=== PATIENT | female | born 1990 ===

== ENCOUNTER → 2021-12-09 16:19 | Outpatient (CLI) | payer OTHER, SELFPAY ==
--- NOTE | 2021-12-09 16:23 | DI.MRI.S_ITS ---
PROCEDURE: MR FOOT RT WO CON INDICATIONS: Pain in right foot TECHNIQUE: Noncontrast sagittal T1 spin echo and T2 fast spin echo with fat saturation, long-axis T1 spin echo and T2 fast spin echo with fat saturation, short-axis T1 spin echo and T2 fast spin echo with fat saturation through the forefoot. COMPARISON: None. FINDINGS: Image quality: Excellent. Bones and joints: No bone marrow contusions or metatarsal stress fractures. The sesamoid bones appear in expected positions, without internal edema. Moderate degenerative changes are seen at the 1st metatarsophalangeal joint with subchondral cystic changes and marginal osteophytes. There is mild hallux valgus.. No intraosseous lesions. Soft tissues: The visualized plantar foot muscles demonstrate normal signal and bulk. Visualized flexor and extensor tendons appear intact, without tenosynovitis. The distal insertions of the peroneus brevis and longus tendons appear intact. The principal Lisfranc ligament appears intact. No soft tissue ganglion cysts or bursal fluid collections. Sagittal images demonstrate no evidence for plantar plate tears. Chronic pressure related changes are seen in the subcutaneous tissues plantar to the 5th metatarsal head. IMPRESSION: Mild hallux valgus and moderate degenerative changes at the 1st metatarsophalangeal joint. Dictated by: Estrada Castaneda M.D. on 12/10/2021 at 8:42 Approved by: Estrada Castaneda M.D. on 12/10/2021 at 8:52
== END ==
PROVIDERS: PCP Podiatrist; Referring Provider Podiatrist; Visit Provider Podiatrist
DX: M20.11 Hallux valgus (acquired), right foot (principal); S93.511A Sprain of interphalangeal joint of right great toe, initial encounter; R26.2 Difficulty in walking, not elsewhere classified; M79.671 Pain in right foot
CPT/HCPCS: 73718

== ENCOUNTER 2024-02-23 13:00 | Outpatient (RCR) | payer OTHER, SELFPAY ==
--- NOTE | 2023-12-17 15:51 | PT.OIE ---
Current Diagnoses Pain in left knee (12/17/23) Low back pain, unspecified (12/17/23) Weakness (12/17/23) Visit Care Team Role Provider Type James Blandon DPM Family Provider Physician Primary Care Provider Specialty: Podiatry Address: [address], [place], [address] Email: Jody Spear MD Attending Provider Non-Staff Referring Provider Specialty: Family Practice Address: [facility] [facility] [facility], [place], [address] Email: Physical Therapy Initial Evaluation PT-OP-A Visit Information Start: 12/17/23 12:59 Freq: Status: Active Protocol: Document 12/17/23 12:59 NM (Rec: 12/17/23 14:29 NM [id number]) Out-Patient Physical Therapy Visit Information Visit Information Visit Type Initial Evaluation Visit Note 12 visits initially Visit Start Time 13:00 Visit Stop Time 13:45 Visit Number 1 Evaluation Information Evaluation Date 12/17/23 PT-OP-B Current Condition Start: 12/17/23 12:59 Freq: Status: Active Protocol: Document 12/17/23 12:59 NM (Rec: 12/17/23 14:29 NM [id number]) Current Condition History of Current Condition Current Complaints pain, difficulty w/ ADLs/job, strength History of Current Condition Pt presents with knee and back pain. He reports that his L knee aches a lot. It aches when he stands, sit, crosses legs, rest. He thinks he hurt it playing soccer a few years ago (2.5 years ago), but he also [place] the [place]. He planted his knee, it gave out, and he fell backward. He does not recall a pop; was limping but able to weight bear. Lasted several weeks until resolved closer to normal. Reports crepitus and clicking, worse with flexing. He has had previous PT for his knee with the [employer], they think that it's due to rubbing of the cartilage, which was unhelpful . He has had an x-ray, nothing broken. Pt believes it's inside the knee. He is wanting an MRI. Reports knee does not buckle or give out. No other hip or ankle injuries. Pt also has back pain. He reports that he was loading food into storage areas about 1 year ago : bent down and twisted while getting food; his back locked and he couldn't get up or sit. He reports that it has improved but still aches at all times. He reports that it hurts if he wears his tool belt or chain (20# belt, 6x12# )- over the shoulder, crouching, squatting. 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 Injured back last year. He has had no imaging on his back. Pt also reports that he used to lift heavy weights and has been at least 250 pounds for many years, which he believes influences his pain Prior Treatments and Tests previous PT for back pain with [facility]; reports feels better but still not better Treatment Goals Patient/Caregiver Goals more concerned about his knee. 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 Current Functional Impairments (Reported) Functional Limitations- Mobility/Gait 30 minutes of ambulation PT-OP-C Subjective Start: 12/17/23 12:59 Freq: Status: Active Protocol: Document 12/17/23 12:59 NM (Rec: 12/17/23 14:29 NM [id number]) OP-PT Subjective Patient Comments Patient Comments see hx above for pt report Patient Questionnaires Lower Extremity Functional Scale LEFS Score 30/80 Oswestry Low Back Index Oswestry Score 10/50 OP-PT Pain Assessment Location back Pain Location Details R side along spine Intensity 4 Scale Used Numeric (0 - 10) Description Aching,Throbbing Description- Other worse Pain Duration 1 hour Variations/Patterns none Pain Aggravating Factors Standing,Sitting,Walking, Bending,Lifting Other Pain Aggravating Factors getting out of bed, 15-10 min w/ pouch, 30 min w/o, lifting kid, ext Pain Alleviating Factors Heat,Massage Other Pain Alleviating Factors stretching, sidelying L L knee Pain Location Details inside knee on either side of patella Intensity 6 Scale Used Numeric (0 - 10) Description Aching Frequency Constant Pain Aggravating Factors ADL's,Activity,Exercise, Standing,Sitting,Walking Other Pain Aggravating Factors crawling, moving, running, stairs (down palak) Pain Alleviating Factors None PT-OP-E Functional Tests Start: 12/17/23 12:59 Freq: Status: Active Protocol: Document 12/17/23 12:59 NM (Rec: 12/17/23 14:29 NM [id number]) Functional Tests Squat Test Score 10 Comments inc trunk flex and R rot, knee pain w/ depth, inc tibial fwd PT-OP-F Manual Assessment Start: 12/17/23 12:59 Freq: Status: Active Protocol: Document 12/17/23 12:59 NM (Rec: 12/17/23 14:29 NM [id number]) Manual Assessments Soft Tissue Assessment Soft Tissue Mobility Assessment Increased tone along lumbar paraspinals, R>L. Increased hamstring length L>R Joint Mobility Assessment Joint Mobility Assessment Hypomobility with P-A springing of lumbar spine, tenderness along L1-L3. Limited B hip ROM. No L knee pain with overpressure into flex or ext, but increased L knee hyperextension compared to R knee. L patella tracks laterally. Limited L patellar mobility medially and superiorly, which also reproduces pain. PT-OP-G Mobility & Gait Start: 12/17/23 12:59 Freq: Status: Active Protocol: Document 12/17/23 12:59 NM (Rec: 12/17/23 14:29 NM [id number]) OP Gait Assessment Gait Deviations General Gait Pattern Antalgic Comments Gait Comments Pt demonstrates antalgic gait with L stance and slightly forward flexed trunk. Does not move into truncal extension and with minimal trunk rotation. L knee hyperextends with stance as well, and he has B foot ER PT-OP-J Posture/Palpation/Skin Start: 12/17/23 12:59 Freq: Status: Active Protocol: Document 12/17/23 12:59 NM (Rec: 12/17/23 14:29 NM [id number]) Posture Evaluation Position Standing Head/C-Spine Posture Forward Head L-Spine Posture Decreased Lordosis Shoulder Posture (L) Rounded,(R) Rounded Arm Posture (L) Internally Rotated,(R) Internally Rotated Weight Distribution Weight Shifted Right Hip Posture (L) Externally Rotated,(R) Externally Rotated Knee Posture (L) Genu Valgus,(R) Genu Valgus Patellar Posture (L) Superior,(R) Superior Palpation Assessment Location lumbar spine Palpation Details Tenderness just lateral to midline spinous processes along R side near L1-L3 No tenderness along B PSIS or SIJ Increased tightness of B glutes/piriformis, paraspinals bilaterally with L hypertrophy L knee Palpation Details No tenderness along joint line , patella, quad/hamstring Mild tenderness with patellar mobilization only, ligament testing PT-OP-K Range of Motion Start: 12/17/23 12:59 Freq: Status: Active Protocol: Document 12/17/23 12:59 NM (Rec: 12/17/23 14:29 NM [id number]) Lumbar Spine Range of Motion Lumbar Spine Active Percentage Flexion 100 Extension 25 Rotation Left 10 Rotation Right 5 Lateral Flexion Left 100 Lateral Flexion Right 100 Comments Pain reproduced with extension , B lateral flexion (R>L), and B rotation (R>L) Hip Goniometric Range of Motion Hip Right Flexion w/Knee Flexed 100 Internal Rotation 40 External Rotation 40 Comments IR; 130 deg HS Left Flexion w/Knee Flexed 100 Internal Rotation 30 External Rotation 30 Comments pain with IR, 30 abd, 150 HS Knee Goniometric Range of Motion Knee Right Flexion Active (degrees) 125 Extension Active (degrees) 0 Left Flexion Active (degrees) 123 Extension Active (degrees) 0 Hyper-Extension Active 5 Comments no pain with over pressure, only M/sup glide PT-OP-L Special Tests Start: 12/17/23 12:59 Freq: Status: Active Protocol: Document 12/17/23 12:59 NM (Rec: 12/17/23 14:29 NM [id number]) Special Tests Lumbar Spine Special Tests Straight Leg Raise Test Results - Comments worse with head movement Distraction Test Results + Frias/quadrant Test Results + Comments R Knee Special Tests Varus Test Results - Comments 0 and 25 deg Valgus Test Results - Comments 0 and 25 deg Kieth Test Test Results + Comments mild clicking with tibial IR, reproduces reported symptoms Posterior Drawer Test Results - Zelda's Test Results - Anterior Drawer Test Results - Comments no increased translation but reports reproduces feeling in knee PT-OP-M Strength Start: 12/17/23 12:59 Freq: Status: Active Protocol: Document 12/17/23 12:59 NM (Rec: 12/17/23 14:29 NM [id number]) Trunk Strength Trunk Manual Muscle Testing Flexion 4- Good- Extension 4- Good- Rotation Left 4- Good- Rotation Right 4- Good- Lateral Flexion Left 4- Good- Lateral Flexion Right 4- Good- Hip Strength Hip Manual Muscle Testing Right Flexion (L2) 4 Good Extension (S1) 4- Good- Abduction 4- Good- Adduction 4 Good External Rotation 4 Good Internal Rotation 4 Good Left Flexion (L2) 4 Good Extension (S1) 4- Good- Abduction 4- Good- Adduction 4 Good External Rotation 4 Good Internal Rotation 4 Good Knee Strength Knee Manual Muscle Testing Right Flexion (S2) 4+ Good+ Extension (L3) 4+ Good+ Left Flexion (S2) 4+ Good+ Extension (L3) 4- Good- Comments Mild pain reproduced with knee extension PT-OP-T Assessment and Plan Start: 12/17/23 12:59 Freq: Status: Active Protocol: Document 12/17/23 12:59 NM (Rec: 12/17/23 14:29 NM [id number]) Physical Therapy Assessment Rehab Potential Rehabilitation Potential Good Evaluation Complexity Number of Personal Factors/Comorbidities 1-2 Number of Body Systems Impaired 1-2 Clinical Presentation at Evaluation Stable Goals Four Impairment strength Impairment limited B hip and knee strength Short Term Goal (STG) Pt will improve B hip ext/abd strength and L knee ext strength to at least 4/5 without increase in baseline pain in order to demonstrate improved proximal stability for ADLs/activity STG Duration 6 weeks Group Home Goal (LTG) Pt will improve B hip ext/abd strength and L knee ext strength to at least 4+/5 without increase in baseline pain in order to demonstrate improved proximal stability for ADLs/activity LTG Duration 12 weeks Three Impairment squatting Impairment pain with squatting Short Term Goal (STG) Pt will be able to perform at least 10 bilateral squats with pain <6/10 in L knee in order to be able to perform job requirements and demonstrate improved activity tolerance/ QOL STG Duration 6 weeks Housekeeping Manager Goal (LTG) Pt will be able to perform at least 10 bilateral squats while holding weight without increase in baseline pain in L knee in order to be able to perform job requirements and demonstrate improved activity tolerance LTG Duration 12 weeks Two Impairment functional core strength Housekeeping Manager Goal (LTG) Pt will be able to hold modified or standard plank for at least 60 seconds without signs of instability in order to demonstrate improved trunk strength for job fitness requirements LTG Duration 12 weeks One Impairment function, lifting Impairment pain with picking up his child Short Term Goal (STG) Pt will be educated on functional core bracing and demonstrates good abdominal bracing during at least 10 squats in order to bulk picker his child STG Duration 6 weeks Group Home Goal (LTG) Pt will be able to bulk picker his child from the ground without increase in low back pain in order to demonstrate improved QOL, core bracing, and ADL tolerance LTG Duration 12 weeks Assessment Summary Assessment Pt is a 33 y.o. male presenting with low back and L knee pain beginning several years ago. Pt has impairments in both trunk and L knee ROM, strength, mobility, functional activity tolerance, pain management, and ability to perform ADLs/job requirements. Additionally, pt has pain with sitting, standing, ambulating, squatting, lifting , carrying, and picking up objects/people. His trunk ROM is limited into extension, lateral flexion, and rotation. His pain is reproduced with 3D movements, hip mobility, and hamstring length. Pt's back pain is likely due to disc displacement, although he could also have facet involvement. Pt has had previous PT for his pain with minimal success, and he has not had any imaging. Pt's L knee ROM is likely multi- factorial, including a possible meniscus injury. His L knee hyperextends, and he has L joint clicking which is consistent with JAMES and subjective. His symptoms are reproduced with patellar mobility, squatting, tibial translation, and special tests . However, pt does not have joint line tenderness and has not had any imaging. PT educated pt on exam findings and plan of care. At this time , pt is more concerned about his knee. Depending on pt progression with PT, he may benefit from further assessment, including MRI. Pt would benefit from skilled PT for global trunk/hip strengthening, body mechanics training, and flexibility training in order to improve symptom management, in addition to activity tolerance and QOL. Physical Therapy Plan Frequency and Duration Frequency of Treatment 1-2x/wk Duration of treatment (weeks) 12 Plan of Care Start Date 12/17/23 Plan of Care End Date 03/11/24 Therapeutic Interventions Therapeutic Interventions Balance Training,Coordination Training,Gait Training,Home Exercise Program,Joint Mobilizations,Manual Therapy, Neuromuscular Re-education, Orthotic/Prosthetic Management ,Patient/Caregiver Education, Self-Care/Home Management, Sensory Integration,Soft Tissue Mobilization,Taping, Therapeutic Activities, Therapeutic Exercises Modalities Cold Pack/Ice Massage,Electric Stimulation,Hot Packs, Ultrasound Next Visit Focus/Plan Next Note Type Treatment Note Next Visit Plan test plank for time (modified or regular) provide HEP Trial supine HS mobilization, sidelying hip abd and bridging (SL vs DL), initiate flexion biased core bracing and hip hinge, stretching limit squat depth for now
--- NOTE | 2023-12-17 15:51 | PT.OPPOC ---
Physical, Occupational & Speech Therapy At Current Diagnoses Pain in left knee (12/17/23) Low back pain, unspecified (12/17/23) Weakness (12/17/23) Visit Care Team Role Provider Type James Blandon DPM Family Provider Physician Primary Care Provider Specialty: Podiatry Address: [address] [place] [address] [address], [place], [address] Email: Jody Spear MD Attending Provider Non-Staff Referring Provider Specialty: Family Practice Address: [address] [place], [address] Email: Plan Of Care PT-OP-T Assessment and Plan Start: 12/17/23 12:59 Freq: Status: Active Protocol: Document 12/17/23 12:59 NM (Rec: 12/17/23 14:29 NM [id number]) Physical Therapy Assessment Rehab Potential Rehabilitation Potential Good Evaluation Complexity Number of Personal Factors/Comorbidities 1-2 Number of Body Systems Impaired 1-2 Clinical Presentation at Evaluation Stable Goals Four Impairment strength Impairment limited B hip and knee strength Short Term Goal (STG) Pt will improve B hip ext/abd strength and L knee ext strength to at least 4/5 without increase in baseline pain in order to demonstrate improved proximal stability for ADLs/activity STG Duration 6 weeks Automotive Specialty Technician Goal (LTG) Pt will improve B hip ext/abd strength and L knee ext strength to at least 4+/5 without increase in baseline pain in order to demonstrate improved proximal stability for ADLs/activity LTG Duration 12 weeks Three Impairment squatting Impairment pain with squatting Short Term Goal (STG) Pt will be able to perform at least 10 bilateral squats with pain <6/10 in L knee in order to be able to perform job requirements and demonstrate improved activity tolerance/ QOL STG Duration 6 weeks [facility] Goal (LTG) Pt will be able to perform at least 10 bilateral squats while holding weight without increase in baseline pain in L knee in order to be able to perform job requirements and demonstrate improved activity tolerance LTG Duration 12 weeks Two Impairment functional core strength Automotive Specialty Technician Goal (LTG) Pt will be able to hold modified or standard plank for at least 60 seconds without signs of instability in order to demonstrate improved trunk strength for job fitness requirements LTG Duration 12 weeks One Impairment function, lifting Impairment pain with picking up his child Short Term Goal (STG) Pt will be educated on functional core bracing and demonstrates good abdominal bracing during at least 10 squats in order to grape picker his child STG Duration 6 weeks [facility]entiary Goal (LTG) Pt will be able to grape picker his child from the ground without increase in low back pain in order to demonstrate improved QOL, core bracing, and ADL tolerance LTG Duration 12 weeks Assessment Summary Assessment Pt is a 33 y.o. male presenting with low back and L knee pain beginning several years ago. Pt has impairments in both trunk and L knee ROM, strength, mobility, functional activity tolerance, pain management, and ability to perform ADLs/job requirements. Additionally, pt has pain with sitting, standing, ambulating, squatting, lifting , carrying, and picking up objects/people. His trunk ROM is limited into extension, lateral flexion, and rotation. His pain is reproduced with 3D movements, hip mobility, and hamstring length. Pt's back pain is likely due to disc displacement, although he could also have facet involvement. Pt has had previous PT for his pain with minimal success, and he has not had any imaging. Pt's L knee ROM is likely multi- factorial, including a possible meniscus injury. His L knee hyperextends, and he has L joint clicking which is consistent with JAMES and subjective. His symptoms are reproduced with patellar mobility, squatting, tibial translation, and special tests . However, pt does not have joint line tenderness and has not had any imaging. PT educated pt on exam findings and plan of care. At this time , pt is more concerned about his knee. Depending on pt progression with PT, he may benefit from further assessment, including MRI. Pt would benefit from skilled PT for global trunk/hip strengthening, body mechanics training, and flexibility training in order to improve symptom management, in addition to activity tolerance and QOL. Physical Therapy Plan Frequency and Duration Frequency of Treatment 1-2x/wk Duration of treatment (weeks) 12 Plan of Care Start Date 12/17/23 Plan of Care End Date 03/11/24 Therapeutic Interventions Therapeutic Interventions Balance Training,Coordination Training,Gait Training,Home Exercise Program,Joint Mobilizations,Manual Therapy, Neuromuscular Re-education, Orthotic/Prosthetic Management ,Patient/Caregiver Education, Self-Care/Home Management, Sensory Integration,Soft Tissue Mobilization,Taping, Therapeutic Activities, Therapeutic Exercises Modalities Cold Pack/Ice Massage,Electric Stimulation,Hot Packs, Ultrasound Next Visit Focus/Plan Next Note Type Treatment Note Next Visit Plan test plank for time (modified or regular) provide HEP Trial supine HS mobilization, sidelying hip abd and bridging (SL vs DL), initiate flexion biased core bracing and hip hinge, stretching limit squat depth for now Plan of Care Dates Plan of Care Start Date 12/17/23 Plan of Care End Date 03/11/24 Electronically Signed by: Concha Reyes, PT 12/17/23 [id number] If you are in agreement with this Plan of Care, please return a signed and dated copy. I have reviewed this Plan of Care and certify that the skilled therapy services above are required to meet the patient?s needs. Physician Signature Date Printed Name and Credentials Clinical Instructor Signature Printed Name and Credentials
--- NOTE | 2023-12-18 15:25 | PT.OTN ---
Current Diagnoses Pain in left knee (12/18/23) Low back pain, unspecified (12/18/23) Weakness (12/18/23) Physical Therapy Treatment Note PT-OP-A Visit Information Start: 12/17/23 12:59 Freq: Status: Active Protocol: Document 12/18/23 13:00 NM (Rec: 12/18/23 13:55 NM [id number]) Out-Patient Physical Therapy Visit Information Visit Information Visit Type Treatment Note Visit Note 12 visits initially Visit Start Time 13:01 Visit Stop Time 13:45 Visit Number 2 PT-OP-B Current Condition Start: 12/17/23 12:59 Freq: Status: Active Protocol: Document 12/17/23 12:59 NM (Rec: 12/17/23 14:29 NM [id number]) Current Condition History of Current Condition Current Complaints pain, difficulty w/ ADLs/job, strength History of Current Condition Pt presents with knee and back pain. He reports that his L knee aches a lot. It aches when he stands, sit, crosses legs, rest. He thinks he hurt it playing soccer a few years ago (2.5 years ago), but he also [place] the ship. He planted his knee, it gave out, and he fell backward. He does not recall a pop; was limping but able to weight bear. Lasted several weeks until resolved closer to normal. Reports crepitus and clicking, worse with flexing. He has had previous PT for his knee with the [employer], they think that it's due to rubbing of the cartilage, which was unhelpful . He has had an x-ray, nothing broken. Pt believes it's inside the knee. He is wanting an MRI. Reports knee does not buckle or give out. No other hip or ankle injuries. Pt also has back pain. He reports that he was loading food into storage areas about 1 year ago : bent down and twisted while getting food; his back locked and he couldn't get up or sit. He reports that it has improved but still aches at all times. He reports that it hurts if he wears his tool belt or chain (20# belt, 6x12# )- over the shoulder, crouching, squatting. 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 Injured back last year. He has had no imaging on his back. Pt also reports that he used to lift heavy weights and has been at least 250 pounds for many years, which he believes influences his pain Prior Treatments and Tests previous PT for back pain with [employer]; reports feels better but still not better Treatment Goals Patient/Caregiver Goals more concerned about his knee. wants to not ache, pick remover kids without worrying about his back Current Functional Impairments (Reported) Functional Limitations- Mobility/Gait 30 minutes of ambulation PT-OP-C Subjective Start: 12/17/23 12:59 Freq: Status: Active Protocol: Document 12/18/23 13:00 NM (Rec: 12/18/23 13:55 NM [id number]) OP-PT Subjective Patient Comments Patient Comments Pt reports no change since yesterday. Currently 4-5/10 low back and knee pain. PT-OP-E Functional Tests Start: 12/17/23 12:59 Freq: Status: Active Protocol: Document 12/18/23 13:00 NM (Rec: 12/18/23 13:55 NM [id number]) Functional Tests Other plank Name of Test full plank Score 28 seconds Comment signs of instability; reports pain in back (positional) PT-OP-F Manual Assessment Start: 12/17/23 12:59 Freq: Status: Active Protocol: Document 12/17/23 12:59 NM (Rec: 12/17/23 14:29 NM [id number]) Manual Assessments Soft Tissue Assessment Soft Tissue Mobility Assessment Increased tone along lumbar paraspinals, R>L. Increased hamstring length L>R Joint Mobility Assessment Joint Mobility Assessment Hypomobility with P-A springing of lumbar spine, tenderness along L1-L3. Limited B hip ROM. No L knee pain with overpressure into flex or ext, but increased L knee hyperextension compared to R knee. L patella tracks laterally. Limited L patellar mobility medially and superiorly, which also reproduces pain. PT-OP-G Mobility & Gait Start: 12/17/23 12:59 Freq: Status: Active Protocol: Document 12/17/23 12:59 NM (Rec: 12/17/23 14:29 NM [id number]) OP Gait Assessment Gait Deviations General Gait Pattern Antalgic Comments Gait Comments Pt demonstrates antalgic gait with L stance and slightly forward flexed trunk. Does not move into truncal extension and with minimal trunk rotation. L knee hyperextends with stance as well, and he has B foot ER PT-OP-J Posture/Palpation/Skin Start: 12/17/23 12:59 Freq: Status: Active Protocol: Document 12/17/23 12:59 NM (Rec: 12/17/23 14:29 NM [id number]) Posture Evaluation Position Standing Head/C-Spine Posture Forward Head L-Spine Posture Decreased Lordosis Shoulder Posture (L) Rounded,(R) Rounded Arm Posture (L) Internally Rotated,(R) Internally Rotated Weight Distribution Weight Shifted Right Hip Posture (L) Externally Rotated,(R) Externally Rotated Knee Posture (L) Genu Valgus,(R) Genu Valgus Patellar Posture (L) Superior,(R) Superior Palpation Assessment Location lumbar spine Palpation Details Tenderness just lateral to midline spinous processes along R side near L1-L3 No tenderness along B PSIS or SIJ Increased tightness of B glutes/piriformis, paraspinals bilaterally with L hypertrophy L knee Palpation Details No tenderness along joint line , patella, quad/hamstring Mild tenderness with patellar mobilization only, ligament testing PT-OP-K Range of Motion Start: 12/17/23 12:59 Freq: Status: Active Protocol: Document 12/17/23 12:59 NM (Rec: 12/17/23 14:29 NM [id number]) Lumbar Spine Range of Motion Lumbar Spine Active Percentage Flexion 100 Extension 25 Rotation Left 10 Rotation Right 5 Lateral Flexion Left 100 Lateral Flexion Right 100 Comments Pain reproduced with extension , B lateral flexion (R>L), and B rotation (R>L) Hip Goniometric Range of Motion Hip Right Flexion w/Knee Flexed 100 Internal Rotation 40 External Rotation 40 Comments IR; 130 deg HS Left Flexion w/Knee Flexed 100 Internal Rotation 30 External Rotation 30 Comments pain with IR, 30 abd, 150 HS Knee Goniometric Range of Motion Knee Right Flexion Active (degrees) 125 Extension Active (degrees) 0 Left Flexion Active (degrees) 123 Extension Active (degrees) 0 Hyper-Extension Active 5 Comments no pain with over pressure, only M/sup glide PT-OP-L Special Tests Start: 12/17/23 12:59 Freq: Status: Active Protocol: Document 12/17/23 12:59 NM (Rec: 12/17/23 14:29 NM [id number]) Special Tests Lumbar Spine Special Tests Straight Leg Raise Test Results - Comments worse with head movement Distraction Test Results + Frias/quadrant Test Results + Comments R Knee Special Tests Varus Test Results - Comments 0 and 25 deg Valgus Test Results - Comments 0 and 25 deg Keith Test Test Results + Comments mild clicking with tibial IR, reproduces reported symptoms Posterior Drawer Test Results - Zelda's Test Results - Anterior Drawer Test Results - Comments no increased translation but reports reproduces feeling in knee PT-OP-M Strength Start: 12/17/23 12:59 Freq: Status: Active Protocol: Document 12/17/23 12:59 NM (Rec: 12/17/23 14:29 NM [id number]) Trunk Strength Trunk Manual Muscle Testing Flexion 4- Good- Extension 4- Good- Rotation Left 4- Good- Rotation Right 4- Good- Lateral Flexion Left 4- Good- Lateral Flexion Right 4- Good- Hip Strength Hip Manual Muscle Testing Right Flexion (L2) 4 Good Extension (S1) 4- Good- Abduction 4- Good- Adduction 4 Good External Rotation 4 Good Internal Rotation 4 Good Left Flexion (L2) 4 Good Extension (S1) 4- Good- Abduction 4- Good- Adduction 4 Good External Rotation 4 Good Internal Rotation 4 Good Knee Strength Knee Manual Muscle Testing Right Flexion (S2) 4+ Good+ Extension (L3) 4+ Good+ Left Flexion (S2) 4+ Good+ Extension (L3) 4- Good- Comments Mild pain reproduced with knee extension PT-OP-Q Treatments Start: 12/17/23 12:59 Freq: Status: Active Protocol: Document 12/18/23 13:00 NM (Rec: 12/18/23 13:55 NM [id number]) Therapeutic Exercises Supine Exercises SLR Side bilateral Reps/Minutes 15 x 3 Comments pain free, L challenging but pain free Bridge Supine Exercise Name DL > SL Side bilateral Reps/Minutes 10 ea Comments cued for abdominal bracing, ppt prior to lift; pain free, L weaker hamstring stretch/sciatic nerve mobilization Supine Exercise Name with knee flexion/extension for dynamic stretching Side bilateral Reps/Minutes 60 Comments no back pain Sidelying Exercises hip adduction Side bilateral Resistance AROM Reps/Minutes 10 with 3 hold hip abduction Side bilateral Resistance AROM Reps/Minutes 2x10 with 3 hold Comments cued to keep leg alignment neutral/behind spine Manual Therapy Treatment Soft Tissue Mobilization lumbar paraspinals Body Location glutes/piriformis, paraspinals , QL Mobilization Type Rolling,Strumming Intensity/Depth Moderate Body Position Sidelying Comments Tightness but no tenderness of paraspinals or QL, R>L. Performed with gentle lateral flexion for tissue elongation, feels good' Educated on use of rolling pin or small racquetball at home for reduction in muscle tightness Hamstrings/Quads Body Location Bilateral Mobilization Type Instrument Assisted,Rolling, Strumming Intensity/Depth Moderate Body Position Sidelying Comments Tightness of B thigh muscles, reduced with rolling. Monitored for pain. Performed prior to exercises Joint Mobilizations L knee Joint patellar Direction medial, inferior/superior Grade II Body Position Supine Reps/Duration 15 ea Comments For pain reduction, to minimize lateral tracking. Less mobility with medial glides Self-Care/Home Management Treatment Education Patient Education Home Exercise Program Other Education HEP: sidelying hip abduction, single leg bridge Educated to hold off on starting gym/lifting (pt has not been) until form assessed in session palak since bothers the back/knee. Educated also on limiting standing or gait with L knee hyperextended/ locked, cued Soft knees PT-OP-T Assessment and Plan Start: 12/17/23 12:59 Freq: Status: Active Protocol: Document 12/18/23 13:00 NM (Rec: 12/18/23 13:55 NM [id number]) Physical Therapy Assessment Goals Four Impairment strength Impairment limited B hip and knee strength Short Term Goal (STG) Pt will improve B hip ext/abd strength and L knee ext strength to at least 4/5 without increase in baseline pain in order to demonstrate improved proximal stability for ADLs/activity STG Duration 6 weeks Assisted Goal (LTG) Pt will improve B hip ext/abd strength and L knee ext strength to at least 4+/5 without increase in baseline pain in order to demonstrate improved proximal stability for ADLs/activity LTG Duration 12 weeks Three Impairment squatting Impairment pain with squatting Short Term Goal (STG) Pt will be able to perform at least 10 bilateral squats with pain <6/10 in L knee in order to be able to perform job requirements and demonstrate improved activity tolerance/ QOL STG Duration 6 weeks Sweat Band Separator Goal (LTG) Pt will be able to perform at least 10 bilateral squats while holding weight without increase in baseline pain in L knee in order to be able to perform job requirements and demonstrate improved activity tolerance LTG Duration 12 weeks Two Impairment functional core strength Sweat Band Separator Goal (LTG) Pt will be able to hold modified or standard plank for at least 60 seconds without signs of instability in order to demonstrate improved trunk strength for job fitness requirements LTG Duration 12 weeks One Impairment function, lifting Impairment pain with picking up his child Short Term Goal (STG) Pt will be educated on functional core bracing and demonstrates good abdominal bracing during at least 10 squats in order to pick remover his child STG Duration 6 weeks Assisted Goal (LTG) Pt will be able to pick remover his child from the ground without increase in low back pain in order to demonstrate improved QOL, core bracing, and ADL tolerance LTG Duration 12 weeks Assessment Summary Assessment Pt tolerated session well with good muscle activation, but he demonstrates muscle fatigue quickly. Initiated hip strengthening to offload knee and improve stability of trunk /knee. Cued extensively for form with hip abduction. Pt has L knee discomfort with positioning into hip/tibial during hip adduction, which is reduced with positional change. Progressed from double leg bridge with posterior pelvic tilt and abdominal bracing to single leg bridge. Left leg demonstrates quicker signs of fatigue and weakness compared to RLE; however, pt pain free with bridge in both knee and back. Good response to soft tissue mobilization prior to exercise; educated on performing at home for muscle relaxation after work and for pain reduction. Pt wanting to focus more on knee at this time. Pt would benefit from skilled PT for global hip/ trunk strengthening, body mechanics and core bracing in order to improve activity tolerance and ability to participate in work/ recreational requirements. Physical Therapy Plan Frequency and Duration Frequency of Treatment 1-2x/wk Duration of treatment (weeks) 12 Plan of Care Start Date 12/17/23 Plan of Care End Date 03/11/24 Therapeutic Interventions Therapeutic Interventions Balance Training,Coordination Training,Gait Training,Home Exercise Program,Joint Mobilizations,Manual Therapy, Neuromuscular Re-education, Orthotic/Prosthetic Management ,Patient/Caregiver Education, Self-Care/Home Management, Sensory Integration,Soft Tissue Mobilization,Taping, Therapeutic Activities, Therapeutic Exercises Modalities Cold Pack/Ice Massage,Electric Stimulation,Hot Packs, Ultrasound Next Visit Focus/Plan Next Note Type Treatment Note Next Visit Plan Trial stretching of quad/hip flexor (standing), review SL bridge. Initiated core bracing with hip hinge for squat and deadlift; hip strength, wall squat with ball. Emphasize core bracing and glute strengthening, LAQ Trial supine HS mobilization, sidelying hip abd and bridging (SL vs DL), initiate flexion biased core bracing and hip hinge, stretching limit squat depth for now
--- NOTE | 2023-12-30 12:57 | PT.OTN ---
Current Diagnoses Pain in left knee (12/30/23) Low back pain, unspecified (12/30/23) Weakness (12/30/23) Physical Therapy Treatment Note PT-OP-A Visit Information Start: 12/17/23 12:59 Freq: Status: Active Protocol: Document 12/30/23 09:45 NM (Rec: 12/30/23 10:35 NM [id number]) Out-Patient Physical Therapy Visit Information Visit Information Visit Type Treatment Note Visit Note 12 visits initially Visit Start Time 09:46 Visit Stop Time 10:26 Visit Number 3 Evaluation Information Evaluation Date 12/17/23 PT-OP-B Current Condition Start: 12/17/23 12:59 Freq: Status: Active Protocol: Document 12/17/23 12:59 NM (Rec: 12/17/23 14:29 NM [id number]) Current Condition History of Current Condition Current Complaints pain, difficulty w/ ADLs/job, strength History of Current Condition Pt presents with knee and back pain. He reports that his L knee aches a lot. It aches when he stands, sit, crosses legs, rest. He thinks he hurt it playing soccer a few years ago (2.5 years ago), but he also slipped [place] stairs [place] the [place]. He planted his knee, it gave out, and he fell backward. He does not recall a pop; was limping but able to weight bear. Lasted several weeks until resolved closer to normal. Reports crepitus and clicking, worse with flexing. He has had previous PT for his knee with the [employer], they think that it's due to rubbing of the cartilage, which was unhelpful . He has had an x-ray, nothing broken. Pt believes it's inside the knee. He is wanting an MRI. Reports knee does not buckle or give out. No other hip or ankle injuries. Pt also has back pain. He reports that he was loading food into storage areas about 1 year ago : bent down and twisted while getting food; his back locked and he couldn't get up or sit. He reports that it has improved but still aches at all times. He reports that it hurts if he wears his tool belt or chain (20# belt, 6x12# )- over the shoulder, crouching, squatting. Works as maintenance on jets, active duty. Injured back last year. He has had no imaging on his back. Pt also reports that he used to lift heavy weights and has been at least 250 pounds for many years, which he believes influences his pain Prior Treatments and Tests previous PT for back pain with [facility]; reports feels better but still not better Treatment Goals Patient/Caregiver Goals more concerned about his knee. wants to not ache, pick out hand kids without worrying about his back Current Functional Impairments (Reported) Functional Limitations- Mobility/Gait 30 minutes of ambulation PT-OP-C Subjective Start: 12/17/23 12:59 Freq: Status: Active Protocol: Document 12/30/23 09:45 NM (Rec: 12/30/23 10:35 NM [id number]) OP-PT Subjective Patient Comments Patient Comments Pt will be going be gone in upcoming weeks. Reports still has knee pain, no changes since last session. Overall, states no improvements. Reports compliance with HEP 2x /wk, no difficulty with exercises and are not too easy . Pt reports no change to back pain either, but wants to focus more on knee than back PT-OP-E Functional Tests Start: 12/17/23 12:59 Freq: Status: Active Protocol: Document 12/18/23 13:00 NM (Rec: 12/18/23 13:55 NM [id number]) Functional Tests Other plank Name of Test full plank Score 28 seconds Comment signs of instability; reports pain in back (positional) PT-OP-F Manual Assessment Start: 12/17/23 12:59 Freq: Status: Active Protocol: Document 12/17/23 12:59 NM (Rec: 12/17/23 14:29 NM [id number]) Manual Assessments Soft Tissue Assessment Soft Tissue Mobility Assessment Increased tone along lumbar paraspinals, R>L. Increased hamstring length L>R Joint Mobility Assessment Joint Mobility Assessment Hypomobility with P-A springing of lumbar spine, tenderness along L1-L3. Limited B hip ROM. No L knee pain with overpressure into flex or ext, but increased L knee hyperextension compared to R knee. L patella tracks laterally. Limited L patellar mobility medially and superiorly, which also reproduces pain. PT-OP-G Mobility & Gait Start: 12/17/23 12:59 Freq: Status: Active Protocol: Document 12/17/23 12:59 NM (Rec: 12/17/23 14:29 NM [id number]) OP Gait Assessment Gait Deviations General Gait Pattern Antalgic Comments Gait Comments Pt demonstrates antalgic gait with L stance and slightly forward flexed trunk. Does not move into truncal extension and with minimal trunk rotation. L knee hyperextends with stance as well, and he has B foot ER PT-OP-J Posture/Palpation/Skin Start: 12/17/23 12:59 Freq: Status: Active Protocol: Document 12/17/23 12:59 NM (Rec: 12/17/23 14:29 NM [id number]) Posture Evaluation Position Standing Head/C-Spine Posture Forward Head L-Spine Posture Decreased Lordosis Shoulder Posture (L) Rounded,(R) Rounded Arm Posture (L) Internally Rotated,(R) Internally Rotated Weight Distribution Weight Shifted Right Hip Posture (L) Externally Rotated,(R) Externally Rotated Knee Posture (L) Genu Valgus,(R) Genu Valgus Patellar Posture (L) Superior,(R) Superior Palpation Assessment Location lumbar spine Palpation Details Tenderness just lateral to midline spinous processes along R side near L1-L3 No tenderness along B PSIS or SIJ Increased tightness of B glutes/piriformis, paraspinals bilaterally with L hypertrophy L knee Palpation Details No tenderness along joint line , patella, quad/hamstring Mild tenderness with patellar mobilization only, ligament testing PT-OP-K Range of Motion Start: 12/17/23 12:59 Freq: Status: Active Protocol: Document 12/17/23 12:59 NM (Rec: 12/17/23 14:29 NM [id number]) Lumbar Spine Range of Motion Lumbar Spine Active Percentage Flexion 100 Extension 25 Rotation Left 10 Rotation Right 5 Lateral Flexion Left 100 Lateral Flexion Right 100 Comments Pain reproduced with extension , B lateral flexion (R>L), and B rotation (R>L) Hip Goniometric Range of Motion Hip Right Flexion w/Knee Flexed 100 Internal Rotation 40 External Rotation 40 Comments IR; 130 deg HS Left Flexion w/Knee Flexed 100 Internal Rotation 30 External Rotation 30 Comments pain with IR, 30 abd, 150 HS Knee Goniometric Range of Motion Knee Right Flexion Active (degrees) 125 Extension Active (degrees) 0 Left Flexion Active (degrees) 123 Extension Active (degrees) 0 Hyper-Extension Active 5 Comments no pain with over pressure, only M/sup glide PT-OP-L Special Tests Start: 12/17/23 12:59 Freq: Status: Active Protocol: Document 12/17/23 12:59 NM (Rec: 12/17/23 14:29 NM [id number]) Special Tests Lumbar Spine Special Tests Straight Leg Raise Test Results - Comments worse with head movement Distraction Test Results + Frias/quadrant Test Results + Comments R Knee Special Tests Varus Test Results - Comments 0 and 25 deg Valgus Test Results - Comments 0 and 25 deg Keith Test Test Results + Comments mild clicking with tibial IR, reproduces reported symptoms Posterior Drawer Test Results - Zelda's Test Results - Anterior Drawer Test Results - Comments no increased translation but reports reproduces feeling in knee PT-OP-M Strength Start: 12/17/23 12:59 Freq: Status: Active Protocol: Document 12/17/23 12:59 NM (Rec: 12/17/23 14:29 NM [id number]) Trunk Strength Trunk Manual Muscle Testing Flexion 4- Good- Extension 4- Good- Rotation Left 4- Good- Rotation Right 4- Good- Lateral Flexion Left 4- Good- Lateral Flexion Right 4- Good- Hip Strength Hip Manual Muscle Testing Right Flexion (L2) 4 Good Extension (S1) 4- Good- Abduction 4- Good- Adduction 4 Good External Rotation 4 Good Internal Rotation 4 Good Left Flexion (L2) 4 Good Extension (S1) 4- Good- Abduction 4- Good- Adduction 4 Good External Rotation 4 Good Internal Rotation 4 Good Knee Strength Knee Manual Muscle Testing Right Flexion (S2) 4+ Good+ Extension (L3) 4+ Good+ Left Flexion (S2) 4+ Good+ Extension (L3) 4- Good- Comments Mild pain reproduced with knee extension PT-OP-Q Treatments Start: 12/17/23 12:59 Freq: Status: Active Protocol: Document 12/30/23 09:45 NM (Rec: 12/30/23 10:35 NM [id number]) Cardio Equipment Bicycle (Upright) Duration (Minutes) 4 Resistance 0 Seat Position 7 Other start of session Therapeutic Exercises Supine Exercises keegan stretch Side bilateral Reps/Minutes 60 Comments no knee or back pain; good feedback for stretch Bridge Supine Exercise Name single leg bridge Side bilateral Reps/Minutes 2x8 ea Comments cued for abdominal bracing, ppt prior to lift; pain free, L weaker hamstring stretch/sciatic nerve mobilization Supine Exercise Name with knee flexion/extension for dynamic stretching Side bilateral Reps/Minutes 60 ea Comments pain free; cued to maintain stretch for longer before mobilizing Prone Exercises bear plank Prone Exercise Name for time Side bilateral Reps/Minutes 2x30 Comments cued abdominal bracing with break work; demos instability Sidelying Exercises hip abduction Sidelying Exercise Name with hip IR Side bilateral Resistance AROM Reps/Minutes 15 with 5 hold Comments cued to keep leg alignment neutral/behind spine Sitting Exercises sit to stand Sitting Exercise Name 1. STS, 2. buttock tap to plinth Side bilateral Resistance level 2 band above knees Equipment Used cued abdominal bracing Reps/Minutes 10, 10 ea Comments with hinge self tactile cue; no knee pain until last rep w/ buttock tap Standing Exercises hip flexor stretch Side bilateral Equipment Used 2nd 6 stair Reps/Minutes 60 ea Comments d/c due to L knee pain Manual Therapy Treatment Consent Patient gave verbal consent for manual Yes treatment Soft Tissue Mobilization Hamstrings/Quads Body Location Bilateral Mobilization Type Instrument Assisted,Rolling, Strumming Intensity/Depth Moderate Body Position Sidelying Comments Tightness of B thigh muscles, reduced with rolling. Monitored for pain. Performed prior to exercises. Less tension than in previous sessions Joint Mobilizations L knee Joint patellar Direction medial, inferior/superior Grade III Body Position Supine Reps/Duration 15 ea Comments Progressed to grade III For pain reduction, to minimize lateral tracking. Less mobility with medial glides, pain free. PT-OP-T Assessment and Plan Start: 12/17/23 12:59 Freq: Status: Active Protocol: Document 12/30/23 09:45 NM (Rec: 12/30/23 10:35 NM [id number]) Physical Therapy Assessment Goals Four Impairment strength Impairment limited B hip and knee strength Short Term Goal (STG) Pt will improve B hip ext/abd strength and L knee ext strength to at least 4/5 without increase in baseline pain in order to demonstrate improved proximal stability for ADLs/activity STG Duration 6 weeks Detention Goal (LTG) Pt will improve B hip ext/abd strength and L knee ext strength to at least 4+/5 without increase in baseline pain in order to demonstrate improved proximal stability for ADLs/activity LTG Duration 12 weeks Three Impairment squatting Impairment pain with squatting Short Term Goal (STG) Pt will be able to perform at least 10 bilateral squats with pain <6/10 in L knee in order to be able to perform job requirements and demonstrate improved activity tolerance/ QOL STG Duration 6 weeks Detention Goal (LTG) Pt will be able to perform at least 10 bilateral squats while holding weight without increase in baseline pain in L knee in order to be able to perform job requirements and demonstrate improved activity tolerance LTG Duration 12 weeks Two Impairment functional core strength Mosaic Layer Goal (LTG) Pt will be able to hold modified or standard plank for at least 60 seconds without signs of instability in order to demonstrate improved trunk strength for job fitness requirements LTG Duration 12 weeks One Impairment function, lifting Impairment pain with picking up his child Short Term Goal (STG) Pt will be educated on functional core bracing and demonstrates good abdominal bracing during at least 10 squats in order to pick out hand his child STG Duration 6 weeks Detention Goal (LTG) Pt will be able to pick out hand his child from the ground without increase in low back pain in order to demonstrate improved QOL, core bracing, and ADL tolerance LTG Duration 12 weeks Assessment Summary Assessment Pt tolerated session well. He is wanting to focus more on his L knee than his back. Continued with glute/quad strengthening to offload knee. Educated on core bracing with abdominal drawing up/in prior to exercise or lifting. Requires cues for correct form with single leg bridge and sidelying hip abduction. Progressed to isometric hold for greater glute medius activation with sidelying hip abduction. Initiated abdominal bracing and hip hinge training as part of body mechanics education for work. Pt able to progress from sit to stand with band at thighs to buttock tap with band. Moderate cueing for form, hip hinge, breathwork and core bracing; however, improved with reps and education for rationale. Trialed bear planks . Pt tolerates well but demonstates signs of instability after 15 seconds, able to reach 30 secs. Pt would benefit from skilled PT for L knee/hip strengthening and core bracing in order to improve activity tolerance and body mechanics. Physical Therapy Plan Frequency and Duration Frequency of Treatment 1-2x/wk Duration of treatment (weeks) 12 Plan of Care Start Date 12/17/23 Plan of Care End Date 03/11/24 Therapeutic Interventions Therapeutic Interventions Balance Training,Coordination Training,Gait Training,Home Exercise Program,Joint Mobilizations,Manual Therapy, Neuromuscular Re-education, Orthotic/Prosthetic Management ,Patient/Caregiver Education, Self-Care/Home Management, Sensory Integration,Soft Tissue Mobilization,Taping, Therapeutic Activities, Therapeutic Exercises Modalities Cold Pack/Ice Massage,Electric Stimulation,Hot Packs, Ultrasound Next Visit Focus/Plan Next Note Type Treatment Note Next Visit Plan Continue stretching. Add ankle DF mobilization. Initiated core bracing with hip hinge for squat and deadlift mechanics (limit squat depth due to knee); hip strength, wall squat with ball if tolerated. Side steps, trial LAQ. Emphasize core bracing and glute strengthening, LAQ Trial supine HS mobilization, sidelying hip abd and bridging (SL vs DL), initiate flexion biased core bracing and hip hinge, stretching limit squat depth for now
--- NOTE | 2024-01-27 14:30 | PT.OTN ---
Current Diagnoses Pain in left knee (01/27/24) Low back pain, unspecified (01/27/24) Weakness (01/27/24) Physical Therapy Treatment Note PT-OP-A Visit Information Start: 12/17/23 12:59 Freq: Status: Active Protocol: Document 01/27/24 14:31 TS (Rec: 01/27/24 16:43 TS [id number]) Out-Patient Physical Therapy Visit Information Visit Information Visit Type Treatment Note Visit Note 12 visits initially [facility]: [id number] Visit Start Time 14:30 Visit Stop Time 15:10 Visit Number 4 Number of SKEIN DYER Visits 1 PT-OP-B Current Condition Start: 12/17/23 12:59 Freq: Status: Active Protocol: Document 12/17/23 12:59 NM (Rec: 12/17/23 14:29 NM [id number]) Current Condition History of Current Condition Current Complaints pain, difficulty w/ ADLs/job, strength History of Current Condition Pt presents with knee and back pain. He reports that his L knee aches a lot. It aches when he stands, sit, crosses legs, rest. He thinks he hurt it playing soccer a few years ago (2.5 years ago), but he also [place] the [place]. He planted his knee, it gave out, and he fell backward. He does not recall a pop; was limping but able to weight bear. Lasted several weeks until resolved closer to normal. Reports crepitus and clicking, worse with flexing. He has had previous PT for his knee with the [employer], they think that it's due to rubbing of the cartilage, which was unhelpful . He has had an x-ray, nothing broken. Pt believes it's inside the knee. He is wanting an MRI. Reports knee does not buckle or give out. No other hip or ankle injuries. Pt also has back pain. He reports that he was loading food into storage areas about 1 year ago : bent down and twisted while getting food; his back locked and he couldn't get up or sit. He reports that it has improved but still aches at all times. He reports that it hurts if he wears his tool belt or chain (20# belt, 6x12# )- over the shoulder, crouching, squatting. 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 Injured back last year. He has had no imaging on his back. Pt also reports that he used to lift heavy weights and has been at least 250 pounds for many years, which he believes influences his pain Prior Treatments and Tests previous PT for back pain with [facility]; reports feels better but still not better Treatment Goals Patient/Caregiver Goals more concerned about his knee. 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 He would like to work on his lower back this session and not his knee. PT-OP-E Functional Tests Start: 12/17/23 12:59 Freq: Status: Active Protocol: Document 12/18/23 13:00 NM (Rec: 12/18/23 13:55 NM [id number]) Functional Tests Other plank Name of Test full plank Score 28 seconds Comment signs of instability; reports pain in back (positional) PT-OP-F Manual Assessment Start: 12/17/23 12:59 Freq: Status: Active Protocol: Document 12/17/23 12:59 NM (Rec: 12/17/23 14:29 NM [id number]) Manual Assessments Soft Tissue Assessment Soft Tissue Mobility Assessment Increased tone along lumbar paraspinals, R>L. Increased hamstring length L>R Joint Mobility Assessment Joint Mobility Assessment Hypomobility with P-A springing of lumbar spine, tenderness along L1-L3. Limited B hip ROM. No L knee pain with overpressure into flex or ext, but increased L knee hyperextension compared to R knee. L patella tracks laterally. Limited L patellar mobility medially and superiorly, which also reproduces pain. PT-OP-G Mobility & Gait Start: 12/17/23 12:59 Freq: Status: Active Protocol: Document 12/17/23 12:59 NM (Rec: 12/17/23 14:29 NM [id number]) OP Gait Assessment Gait Deviations General Gait Pattern Antalgic Comments Gait Comments Pt demonstrates antalgic gait with L stance and slightly forward flexed trunk. Does not move into truncal extension and with minimal trunk rotation. L knee hyperextends with stance as well, and he has B foot ER PT-OP-J Posture/Palpation/Skin Start: 12/17/23 12:59 Freq: Status: Active Protocol: Document 12/17/23 12:59 NM (Rec: 12/17/23 14:29 NM [id number]) Posture Evaluation Position Standing Head/C-Spine Posture Forward Head L-Spine Posture Decreased Lordosis Shoulder Posture (L) Rounded,(R) Rounded Arm Posture (L) Internally Rotated,(R) Internally Rotated Weight Distribution Weight Shifted Right Hip Posture (L) Externally Rotated,(R) Externally Rotated Knee Posture (L) Genu Valgus,(R) Genu Valgus Patellar Posture (L) Superior,(R) Superior Palpation Assessment Location lumbar spine Palpation Details Tenderness just lateral to midline spinous processes along R side near L1-L3 No tenderness along B PSIS or SIJ Increased tightness of B glutes/piriformis, paraspinals bilaterally with L hypertrophy L knee Palpation Details No tenderness along joint line , patella, quad/hamstring Mild tenderness with patellar mobilization only, ligament testing PT-OP-K Range of Motion Start: 12/17/23 12:59 Freq: Status: Active Protocol: Document 12/17/23 12:59 NM (Rec: 12/17/23 14:29 NM [id number]) Lumbar Spine Range of Motion Lumbar Spine Active Percentage Flexion 100 Extension 25 Rotation Left 10 Rotation Right 5 Lateral Flexion Left 100 Lateral Flexion Right 100 Comments Pain reproduced with extension , B lateral flexion (R>L), and B rotation (R>L) Hip Goniometric Range of Motion Hip Right Flexion w/Knee Flexed 100 Internal Rotation 40 External Rotation 40 Comments IR; 130 deg HS Left Flexion w/Knee Flexed 100 Internal Rotation 30 External Rotation 30 Comments pain with IR, 30 abd, 150 HS Knee Goniometric Range of Motion Knee Right Flexion Active (degrees) 125 Extension Active (degrees) 0 Left Flexion Active (degrees) 123 Extension Active (degrees) 0 Hyper-Extension Active 5 Comments no pain with over pressure, only M/sup glide PT-OP-L Special Tests Start: 12/17/23 12:59 Freq: Status: Active Protocol: Document 12/17/23 12:59 NM (Rec: 12/17/23 14:29 NM [id number]) Special Tests Lumbar Spine Special Tests Straight Leg Raise Test Results - Comments worse with head movement Distraction Test Results + Frias/quadrant Test Results + Comments R Knee Special Tests Varus Test Results - Comments 0 and 25 deg Valgus Test Results - Comments 0 and 25 deg Keith Test Test Results + Comments mild clicking with tibial IR, reproduces reported symptoms Posterior Drawer Test Results - Zelda's Test Results - Anterior Drawer Test Results - Comments no increased translation but reports reproduces feeling in knee PT-OP-M Strength Start: 12/17/23 12:59 Freq: Status: Active Protocol: Document 12/17/23 12:59 NM (Rec: 12/17/23 14:29 NM [id number]) Trunk Strength Trunk Manual Muscle Testing Flexion 4- Good- Extension 4- Good- Rotation Left 4- Good- Rotation Right 4- Good- Lateral Flexion Left 4- Good- Lateral Flexion Right 4- Good- Hip Strength Hip Manual Muscle Testing Right Flexion (L2) 4 Good Extension (S1) 4- Good- Abduction 4- Good- Adduction 4 Good External Rotation 4 Good Internal Rotation 4 Good Left Flexion (L2) 4 Good Extension (S1) 4- Good- Abduction 4- Good- Adduction 4 Good External Rotation 4 Good Internal Rotation 4 Good Knee Strength Knee Manual Muscle Testing Right Flexion (S2) 4+ Good+ Extension (L3) 4+ Good+ Left Flexion (S2) 4+ Good+ Extension (L3) 4- Good- Comments Mild pain reproduced with knee extension PT-OP-Q Treatments Start: 12/17/23 12:59 Freq: Status: Active Protocol: Document 01/27/24 14:31 TS (Rec: 01/27/24 16:43 TS [id number]) Therapeutic Exercises Supine Exercises Core ball rollouts Reps/Minutes 2x10 Comments some tightness in back Piriformis Supine Exercise Name HEP Side bilateral Reps/Minutes 2x60 Figure 4 Supine Exercise Name HEP Reps/Minutes 2x60 LTR Supine Exercise Name HEP Reps/Minutes x10 Comments cued to stay in pain free range. keegan stretch Side bilateral Reps/Minutes 60 Comments no knee or back pain; good feedback for stretch Prone Exercises bear plank Prone Exercise Name for time Side bilateral Reps/Minutes 2x30 Comments cued abdominal bracing with break work; demos instability Sidelying Exercises Sideplank Sidelying Exercise Name HEP. Modified with knees on table Side bilateral Reps/Minutes 5x10 hold Comments Challenging for pt Manual Therapy Treatment Soft Tissue Mobilization lumbar paraspinals Body Location glutes/piriformis, paraspinals , QL Mobilization Type Rolling,Strumming Intensity/Depth Moderate Body Position Sidelying Comments Tightness but no tenderness of paraspinals or QL, R>L. Performed with gentle lateral flexion for tissue elongation, feels good' Educated on use of rolling pin or small racquetball at home for reduction in muscle tightness Self-Care/Home Management Treatment Education Patient Education Home Exercise Program Other Education Educated pt on useing tennis ball or racketball for STM to QL on R side. PT-OP-T Assessment and Plan Start: 12/17/23 12:59 Freq: Status: Active Protocol: Document 01/27/24 14:31 TS (Rec: 01/27/24 16:43 TS [id number]) Physical Therapy Assessment Goals Four Impairment strength Impairment limited B hip and knee strength Short Term Goal (STG) Pt will improve B hip ext/abd strength and L knee ext strength to at least 4/5 without increase in baseline pain in order to demonstrate improved proximal stability for ADLs/activity STG Duration 6 weeks Jail Goal (LTG) Pt will improve B hip ext/abd strength and L knee ext strength to at least 4+/5 without increase in baseline pain in order to demonstrate improved proximal stability for ADLs/activity LTG Duration 12 weeks Three Impairment squatting Impairment pain with squatting Short Term Goal (STG) Pt will be able to perform at least 10 bilateral squats with pain <6/10 in L knee in order to be able to perform job requirements and demonstrate improved activity tolerance/ QOL STG Duration 6 weeks Manager People Goal (LTG) Pt will be able to perform at least 10 bilateral squats while holding weight without increase in baseline pain in L knee in order to be able to perform job requirements and demonstrate improved activity tolerance LTG Duration 12 weeks Two Impairment functional core strength Manager People Goal (LTG) Pt will be able to hold modified or standard plank for at least 60 seconds without signs of instability in order to demonstrate improved trunk strength for job fitness requirements LTG Duration 12 weeks One Impairment function, lifting Impairment pain with picking up his child Short Term Goal (STG) Pt will be educated on functional core bracing and demonstrates good abdominal bracing during at least 10 squats in 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 Focused treatment on stretching of hips and core. Pt continues to have instability with core ex , bear planks and sideplanks modified with knees on table. He has increased tightness in R paraspinals compared to L. He was educated on use of tennis ball or racketball for use on QL and paraspinals for at home. Pt continued to report back pain at end of session. Physical Therapy Plan Next Visit Focus/Plan Next Note Type Treatment Note Next Visit Plan Assess pt's back pain, if he want sto focus on back or knee . Continue hip stretches and progress core ex. Add ankle DF mobilization. Initiated core bracing with hip hinge for squat and deadlift mechanics (limit squat depth due to knee); hip strength, wall squat with ball if tolerated. Side steps, trial LAQ. Emphasize core bracing and glute strengthening, LAQ Trial supine HS mobilization, sidelying hip abd and bridging (SL vs DL), initiate flexion biased core bracing and hip hinge, stretching limit squat depth for now
--- NOTE | 2024-01-29 13:00 | PT.OTN ---
Current Diagnoses Pain in left knee (01/29/24) Low back pain, unspecified (01/29/24) Weakness (01/29/24) Physical Therapy Treatment Note PT-OP-A Visit Information Start: 12/17/23 12:59 Freq: Status: Active Protocol: Document 01/29/24 12:53 TS (Rec: 01/29/24 16:25 TS [id number]) Out-Patient Physical Therapy Visit Information Visit Information Visit Type Treatment Note Visit Note 12 visits initially [facility]: [id number] Visit Start Time 13:00 Visit Stop Time 13:40 Visit Number 5 Number of BRAND MGR Visits 2 PT-OP-B Current Condition Start: 12/17/23 12:59 Freq: Status: Active Protocol: Document 12/17/23 12:59 NM (Rec: 12/17/23 14:29 NM [id number]) Current Condition History of Current Condition Current Complaints pain, difficulty w/ ADLs/job, strength History of Current Condition Pt presents with knee and back pain. He reports that his L knee aches a lot. It aches when he stands, sit, crosses legs, rest. He thinks he hurt it playing soccer a few years ago (2.5 years ago), but he also slipped [place] stairs [place] the ship. He planted his knee, it gave out, and he fell backward. He does not recall a pop; was limping but able to weight bear. Lasted several weeks until resolved closer to normal. Reports crepitus and clicking, worse with flexing. He has had previous PT for his knee with the [employer], they think that it's due to rubbing of the cartilage, which was unhelpful . He has had an x-ray, nothing broken. Pt believes it's inside the knee. He is wanting an MRI. Reports knee does not buckle or give out. No other hip or ankle injuries. Pt also has back pain. He reports that he was loading food into storage areas about 1 year ago : bent down and twisted while getting food; his back locked and he couldn't get up or sit. He reports that it has improved but still aches at all times. He reports that it hurts if he wears his tool belt or chain (20# belt, 6x12# )- over the shoulder, crouching, squatting. 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 Injured back last year. He has had no imaging on his back. Pt also reports that he used to lift heavy weights and has been at least 250 pounds for many years, which he believes influences his pain Prior Treatments and Tests previous PT for back pain with [facility]; reports feels better but still not better Treatment Goals Patient/Caregiver Goals more concerned about his knee. 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 Did his HEP especially the stretching. PT-OP-E Functional Tests Start: 12/17/23 12:59 Freq: Status: Active Protocol: Document 12/18/23 13:00 NM (Rec: 12/18/23 13:55 NM [id number]) Functional Tests Other plank Name of Test full plank Score 28 seconds Comment signs of instability; reports pain in back (positional) PT-OP-F Manual Assessment Start: 12/17/23 12:59 Freq: Status: Active Protocol: Document 12/17/23 12:59 NM (Rec: 12/17/23 14:29 NM [id number]) Manual Assessments Soft Tissue Assessment Soft Tissue Mobility Assessment Increased tone along lumbar paraspinals, R>L. Increased hamstring length L>R Joint Mobility Assessment Joint Mobility Assessment Hypomobility with P-A springing of lumbar spine, tenderness along L1-L3. Limited B hip ROM. No L knee pain with overpressure into flex or ext, but increased L knee hyperextension compared to R knee. L patella tracks laterally. Limited L patellar mobility medially and superiorly, which also reproduces pain. PT-OP-G Mobility & Gait Start: 12/17/23 12:59 Freq: Status: Active Protocol: Document 12/17/23 12:59 NM (Rec: 12/17/23 14:29 NM [id number]) OP Gait Assessment Gait Deviations General Gait Pattern Antalgic Comments Gait Comments Pt demonstrates antalgic gait with L stance and slightly forward flexed trunk. Does not move into truncal extension and with minimal trunk rotation. L knee hyperextends with stance as well, and he has B foot ER PT-OP-J Posture/Palpation/Skin Start: 12/17/23 12:59 Freq: Status: Active Protocol: Document 12/17/23 12:59 NM (Rec: 12/17/23 14:29 NM [id number]) Posture Evaluation Position Standing Head/C-Spine Posture Forward Head L-Spine Posture Decreased Lordosis Shoulder Posture (L) Rounded,(R) Rounded Arm Posture (L) Internally Rotated,(R) Internally Rotated Weight Distribution Weight Shifted Right Hip Posture (L) Externally Rotated,(R) Externally Rotated Knee Posture (L) Genu Valgus,(R) Genu Valgus Patellar Posture (L) Superior,(R) Superior Palpation Assessment Location lumbar spine Palpation Details Tenderness just lateral to midline spinous processes along R side near L1-L3 No tenderness along B PSIS or SIJ Increased tightness of B glutes/piriformis, paraspinals bilaterally with L hypertrophy L knee Palpation Details No tenderness along joint line , patella, quad/hamstring Mild tenderness with patellar mobilization only, ligament testing PT-OP-K Range of Motion Start: 12/17/23 12:59 Freq: Status: Active Protocol: Document 12/17/23 12:59 NM (Rec: 12/17/23 14:29 NM [id number]) Lumbar Spine Range of Motion Lumbar Spine Active Percentage Flexion 100 Extension 25 Rotation Left 10 Rotation Right 5 Lateral Flexion Left 100 Lateral Flexion Right 100 Comments Pain reproduced with extension , B lateral flexion (R>L), and B rotation (R>L) Hip Goniometric Range of Motion Hip Right Flexion w/Knee Flexed 100 Internal Rotation 40 External Rotation 40 Comments IR; 130 deg HS Left Flexion w/Knee Flexed 100 Internal Rotation 30 External Rotation 30 Comments pain with IR, 30 abd, 150 HS Knee Goniometric Range of Motion Knee Right Flexion Active (degrees) 125 Extension Active (degrees) 0 Left Flexion Active (degrees) 123 Extension Active (degrees) 0 Hyper-Extension Active 5 Comments no pain with over pressure, only M/sup glide PT-OP-L Special Tests Start: 12/17/23 12:59 Freq: Status: Active Protocol: Document 12/17/23 12:59 NM (Rec: 12/17/23 14:29 NM [id number]) Special Tests Lumbar Spine Special Tests Straight Leg Raise Test Results - Comments worse with head movement Distraction Test Results + Frias/quadrant Test Results + Comments R Knee Special Tests Varus Test Results - Comments 0 and 25 deg Valgus Test Results - Comments 0 and 25 deg Keith Test Test Results + Comments mild clicking with tibial IR, reproduces reported symptoms Posterior Drawer Test Results - Zelda's Test Results - Anterior Drawer Test Results - Comments no increased translation but reports reproduces feeling in knee PT-OP-M Strength Start: 12/17/23 12:59 Freq: Status: Active Protocol: Document 12/17/23 12:59 NM (Rec: 12/17/23 14:29 NM [id number]) Trunk Strength Trunk Manual Muscle Testing Flexion 4- Good- Extension 4- Good- Rotation Left 4- Good- Rotation Right 4- Good- Lateral Flexion Left 4- Good- Lateral Flexion Right 4- Good- Hip Strength Hip Manual Muscle Testing Right Flexion (L2) 4 Good Extension (S1) 4- Good- Abduction 4- Good- Adduction 4 Good External Rotation 4 Good Internal Rotation 4 Good Left Flexion (L2) 4 Good Extension (S1) 4- Good- Abduction 4- Good- Adduction 4 Good External Rotation 4 Good Internal Rotation 4 Good Knee Strength Knee Manual Muscle Testing Right Flexion (S2) 4+ Good+ Extension (L3) 4+ Good+ Left Flexion (S2) 4+ Good+ Extension (L3) 4- Good- Comments Mild pain reproduced with knee extension PT-OP-Q Treatments Start: 12/17/23 12:59 Freq: Status: Active Protocol: Document 01/29/24 12:53 TS (Rec: 01/29/24 16:25 TS [id number]) Therapeutic Exercises Supine Exercises Piriformis Supine Exercise Name HEP Side bilateral Reps/Minutes 2x60 Comments feels good stretch Figure 4 Supine Exercise Name HEP Reps/Minutes 2x60 keegan stretch Side bilateral Reps/Minutes 60 Comments no knee or back pain; good feedback for stretch hamstring stretch/sciatic nerve mobilization Supine Exercise Name with knee flexion/extension for dynamic stretching Side bilateral Reps/Minutes 60 ea Comments pain free; cued to maintain stretch for longer before mobilizing Prone Exercises bear plank Side bilateral Reps/Minutes 2x30 Comments cued abdominal bracing with break work; demos instability Sidelying Exercises Sideplank Sidelying Exercise Name HEP. Modified with knees on table Side bilateral Reps/Minutes 5x10 hold Comments Challenging for pt hip abduction Sidelying Exercise Name with hip IR Side bilateral Resistance AROM Reps/Minutes 1x15 Comments cued to keep leg alignment neutral/behind spine Standing Exercises Ankle dorsiflexion Standing Exercise Name with band Reps/Minutes 2x10 Comments cued for knees over 2nd and 3rd toe. Other Exercises Cow Pose Other Exercise Name Cow pose to neutral Reps/Minutes 1x10 Comments cued for no cat due to discomfort Manual Therapy Treatment Soft Tissue Mobilization lumbar paraspinals Body Location glutes/piriformis, paraspinals , QL Mobilization Type Rolling,Strumming Intensity/Depth Moderate Body Position Sidelying Comments Tightness but no tenderness of paraspinals or QL, R>L. Performed with gentle lateral flexion for tissue elongation, feels good' Educated on use of rolling pin or small racquetball at home for reduction in muscle tightness PT-OP-T Assessment and Plan Start: 12/17/23 12:59 Freq: Status: Active Protocol: Document 01/29/24 12:53 TS (Rec: 01/29/24 16:25 TS [id number]) Physical Therapy Assessment Goals Four Impairment strength Impairment limited B hip and knee strength Short Term Goal (STG) Pt will improve B hip ext/abd strength and L knee ext strength to at least 4/5 without increase in baseline pain in order to demonstrate improved proximal stability for ADLs/activity STG Duration 6 weeks Assisted Goal (LTG) Pt will improve B hip ext/abd strength and L knee ext strength to at least 4+/5 without increase in baseline pain in order to demonstrate improved proximal stability for ADLs/activity LTG Duration 12 weeks Three Impairment squatting Impairment pain with squatting Short Term Goal (STG) Pt will be able to perform at least 10 bilateral squats with pain <6/10 in L knee in order to be able to perform job requirements and demonstrate improved activity tolerance/ QOL STG Duration 6 weeks Va Underwriter Goal (LTG) Pt will be able to perform at least 10 bilateral squats while holding weight without increase in baseline pain in L knee in order to be able to perform job requirements and demonstrate improved activity tolerance LTG Duration 12 weeks Two Impairment functional core strength Assisted Goal (LTG) Pt will be able to hold modified or standard plank for at least 60 seconds without signs of instability in order to demonstrate improved trunk strength for job fitness requirements LTG Duration 12 weeks One Impairment function, lifting Impairment pain with picking up his child Short Term Goal (STG) Pt will be educated on functional core bracing and demonstrates good abdominal bracing during at least 10 squats in order to hand picker his child STG Duration 6 weeks Assisted Goal (LTG) Pt will be able to hand picker his child from the ground without increase in low back pain in order to demonstrate improved QOL, core bracing, and ADL tolerance LTG Duration 12 weeks Assessment Summary Assessment Pt continues to report pain in R side of back after manual therapy. He continues to have instability with core ex. Educated pt on the use of ice and heat at home, pt states he will try. Ankle DF initiated on 6 step. Physical Therapy Plan Next Visit Focus/Plan Next Note Type Treatment Note Next Visit Plan Assess carryover of ankel DF. Ask pt about using ice or heat , racketball at home for back. Initiated core bracing with hip hinge for squat and deadlift mechanics (limit squat depth due to knee); hip strength, wall squat with ball if tolerated. Side steps, trial LAQ. Emphasize core bracing and glute strengthening, LAQ Trial supine HS mobilization, sidelying hip abd and bridging (SL vs DL), initiate flexion biased core bracing and hip hinge, stretching limit squat depth for now
--- NOTE | 2024-02-02 15:58 | PT.OTN ---
Current Diagnoses Pain in left knee (02/02/24) Low back pain, unspecified (02/02/24) Weakness (02/02/24) Physical Therapy Treatment Note PT-OP-A Visit Information Start: 12/17/23 12:59 Freq: Status: Active Protocol: Document 02/02/24 11:20 NM (Rec: 02/02/24 12:06 NM [id number]) Out-Patient Physical Therapy Visit Information Visit Information Visit Type Progress Note Visit Note 12 visits initially Visit Start Time 11:21 Visit Stop Time 12:00 Visit Number 6 PT-OP-B Current Condition Start: 12/17/23 12:59 Freq: Status: Active Protocol: Document 12/17/23 12:59 NM (Rec: 12/17/23 14:29 NM [id number]) Current Condition History of Current Condition Current Complaints pain, difficulty w/ ADLs/job, strength History of Current Condition Pt presents with knee and back pain. He reports that his L knee aches a lot. It aches when he stands, sit, crosses legs, rest. He thinks he hurt it playing soccer a few years ago (2.5 years ago), but he also slipped on the stairs [place] on the ship. He planted his knee, it gave out, and he fell backward. He does not recall a pop; was limping but able to weight bear. Lasted several weeks until resolved closer to normal. Reports crepitus and clicking, worse with flexing. He has had previous PT for his knee with the [employer], they think that it's due to rubbing of the cartilage, which was unhelpful . He has had an x-ray, nothing broken. Pt believes it's inside the knee. He is wanting an MRI. Reports knee does not buckle or give out. No other hip or ankle injuries. Pt also has back pain. He reports that he was loading food into storage areas about 1 year ago : bent down and twisted while getting food; his back locked and he couldn't get up or sit. He reports that it has improved but still aches at all times. He reports that it hurts if he wears his tool belt or chain (20# belt, 6x12# )- over the shoulder, crouching, squatting. 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 Injured back last year. He has had no imaging on his back. Pt also reports that he used to lift heavy weights and has been at least 250 pounds for many years, which he believes influences his pain Prior Treatments and Tests previous PT for back pain with ; reports feels better but still not better Treatment Goals Patient/Caregiver Goals more concerned about his knee. wants to not ache, pickle sorter kids without worrying about his back Current Functional Impairments (Reported) Functional Limitations- Mobility/Gait 30 minutes of ambulation PT-OP-C Subjective Start: 12/17/23 12:59 Freq: Status: Active Protocol: Document 02/02/24 11:20 NM (Rec: 02/02/24 12:06 NM [id number]) OP-PT Subjective Patient Comments Patient Comments Pt reports that he has had increased back pain. He went to the boat and had to carry his pack for at leat 5 hours per day. He was unable to get a waiver for his PFT due to back pain. States back pain has been worsening and has not stopped hurting. Pt reports that sitting up makes his back hurt worse, carrying his son, lifting. States 6-710, nothing makes it better than before. PT-OP-E Functional Tests Start: 12/17/23 12:59 Freq: Status: Active Protocol: Document 12/18/23 13:00 NM (Rec: 12/18/23 13:55 NM [id number]) Functional Tests Other plank Name of Test full plank Score 28 seconds Comment signs of instability; reports pain in back (positional) PT-OP-F Manual Assessment Start: 12/17/23 12:59 Freq: Status: Active Protocol: Document 12/17/23 12:59 NM (Rec: 12/17/23 14:29 NM [id number]) Manual Assessments Soft Tissue Assessment Soft Tissue Mobility Assessment Increased tone along lumbar paraspinals, R>L. Increased hamstring length L>R Joint Mobility Assessment Joint Mobility Assessment Hypomobility with P-A springing of lumbar spine, tenderness along L1-L3. Limited B hip ROM. No L knee pain with overpressure into flex or ext, but increased L knee hyperextension compared to R knee. L patella tracks laterally. Limited L patellar mobility medially and superiorly, which also reproduces pain. PT-OP-G Mobility & Gait Start: 12/17/23 12:59 Freq: Status: Active Protocol: Document 12/17/23 12:59 NM (Rec: 12/17/23 14:29 NM [id number]) OP Gait Assessment Gait Deviations General Gait Pattern Antalgic Comments Gait Comments Pt demonstrates antalgic gait with L stance and slightly forward flexed trunk. Does not move into truncal extension and with minimal trunk rotation. L knee hyperextends with stance as well, and he has B foot ER PT-OP-J Posture/Palpation/Skin Start: 12/17/23 12:59 Freq: Status: Active Protocol: Document 12/17/23 12:59 NM (Rec: 12/17/23 14:29 NM [id number]) Posture Evaluation Position Standing Head/C-Spine Posture Forward Head L-Spine Posture Decreased Lordosis Shoulder Posture (L) Rounded,(R) Rounded Arm Posture (L) Internally Rotated,(R) Internally Rotated Weight Distribution Weight Shifted Right Hip Posture (L) Externally Rotated,(R) Externally Rotated Knee Posture (L) Genu Valgus,(R) Genu Valgus Patellar Posture (L) Superior,(R) Superior Palpation Assessment Location lumbar spine Palpation Details Tenderness just lateral to midline spinous processes along R side near L1-L3 No tenderness along B PSIS or SIJ Increased tightness of B glutes/piriformis, paraspinals bilaterally with L hypertrophy L knee Palpation Details No tenderness along joint line , patella, quad/hamstring Mild tenderness with patellar mobilization only, ligament testing PT-OP-K Range of Motion Start: 12/17/23 12:59 Freq: Status: Active Protocol: Document 02/02/24 11:20 NM (Rec: 02/02/24 12:06 NM [id number]) Lumbar Spine Range of Motion Lumbar Spine Active Percentage Flexion 100 Extension 25 Rotation Left 10 Rotation Right 5 Lateral Flexion Left 100 Lateral Flexion Right 100 Comments Pain reproduced with extension , B lateral flexion (R>L), and B rotation (R>L) 02/01/25: less lateral flex ROM 75% on L side PT-OP-L Special Tests Start: 12/17/23 12:59 Freq: Status: Active Protocol: Document 12/17/23 12:59 NM (Rec: 12/17/23 14:29 NM [id number]) Special Tests Lumbar Spine Special Tests Straight Leg Raise Test Results - Comments worse with head movement Distraction Test Results + Frias/quadrant Test Results + Comments R Knee Special Tests Varus Test Results - Comments 0 and 25 deg Valgus Test Results - Comments 0 and 25 deg Keith Test Test Results + Comments mild clicking with tibial IR, reproduces reported symptoms Posterior Drawer Test Results - Zelda's Test Results - Anterior Drawer Test Results - Comments no increased translation but reports reproduces feeling in knee PT-OP-M Strength Start: 12/17/23 12:59 Freq: Status: Active Protocol: Document 02/02/24 11:20 NM (Rec: 02/02/24 12:06 NM [id number]) Trunk Strength Trunk Manual Muscle Testing Flexion 4- Good- Extension 4- Good- Rotation Left 4- Good- Rotation Right 4- Good- Lateral Flexion Left 4- Good- Lateral Flexion Right 4- Good- Comments 02/02/24: no change since IE Hip Strength Hip Manual Muscle Testing Right Flexion (L2) 4 Good Extension (S1) 4- Good- Abduction 4- Good- Adduction 4 Good External Rotation 4 Good Internal Rotation 4 Good Comments 02/02/24: hip ext/abd Left Flexion (L2) 4 Good Extension (S1) 4- Good- Abduction 4- Good- Adduction 4 Good External Rotation 4 Good Internal Rotation 4 Good Comments 02/02/24: hip ext/abd Knee Strength Knee Manual Muscle Testing Right Flexion (S2) 4+ Good+ Extension (L3) 4+ Good+ Left Flexion (S2) 4+ Good+ Extension (L3) 4- Good- Comments Mild pain reproduced with knee extension 02/02/24: 4/5 for ext; mild pain PT-OP-Q Treatments Start: 12/17/23 12:59 Freq: Status: Active Protocol: Document 02/02/24 11:20 NM (Rec: 02/02/24 12:06 NM [id number]) Therapeutic Exercises Sitting Exercises solomon islander ball Sitting Exercise Name 1. ppt to neutral, 2. pelvic wags Equipment Used 65 cm ball Reps/Minutes 10 ea Comments cued breathwork and upright trunk Standing Exercises squat Side bilateral Reps/Minutes 10 Comments knee pain w/ depth; cued core brace, Other Exercises quadruped Other Exercise Name 1. child pose rock back, 2. hip IR rock back, 3. hip ER rock back Side bilateral Reps/Minutes 10 with 2 hold ea for all Comments hip IR most challenging; cued breathwork Therapeutic Activity Therapeutic Activity log roll Reps/Minutes 1 Comments to L side with moderate cues for correct execution; reports no pain when not twisting back 1/2 kneel floor transfer Name bev picking up kid and for work Reps/Minutes 8 Comments from 1/2 kneel position cued core bracing and hip hinge, LLE behind to emphasis use of R quad for stance. Able to pickle sorter small from floor without report of increased back pain when cued for core bracing hip hinge Comments 1. deadlift with hinge, 8 to pickle sorter large ball 2. squat/hinge to pickle sorter ball , 8 cued core bracing and breathwork to limit breathholding. Pt reports L knee pain with squatting Manual Therapy Treatment Consent Patient gave verbal consent for manual Yes treatment Soft Tissue Mobilization lumbar paraspinals Body Location glutes/piriformis, paraspinals , QL Mobilization Type Rolling,Strumming Intensity/Depth Moderate Body Position Sidelying Comments Tightness but no tenderness of paraspinals or QL, R>L. Performed with gentle lateral flexion for tissue elongation, situated on pillow in L sidelying to promote greater opening of facets. feels good Performed along with gentle elongation of spine into lateral flexion on R side from ribs to QL Joint Mobilizations lumbar spine Joint L2-3 Grade IV Reps/Duration 2x30 Comments spinous process rotated R, demos good response to pressure and grade III rotation L of L2-L3 spinous processes Manual Techniques Dallison's manuever Comments L rotation and lateral flexion feels good PT-OP-T Assessment and Plan Start: 12/17/23 12:59 Freq: Status: Active Protocol: Document 02/02/24 11:20 NM (Rec: 02/02/24 12:06 NM [id number]) Physical Therapy Assessment Goals Four Impairment strength Impairment limited B hip and knee strength Short Term Goal (STG) Pt will improve B hip ext/abd strength and L knee ext strength to at least 4/5 without increase in baseline pain in order to demonstrate improved proximal stability for ADLs/activity 02/02/24: 4/5 hip and knee strength, mild pain but denies increase in baseline pain STG Duration 6 weeks MET Monkey Keeper Goal (LTG) Pt will improve B hip ext/abd strength and L knee ext strength to at least 4+/5 without increase in baseline pain in order to demonstrate improved proximal stability for ADLs/activity LTG Duration 12 weeks Three Impairment squatting Impairment pain with squatting Short Term Goal (STG) Pt will be able to perform at least 10 bilateral squats with pain <6/10 in L knee in order to be able to perform job requirements and demonstrate improved activity tolerance/ QOL 02/02/24: pt reports pain in L knee (does not provide number) with squatting STG Duration 6 weeks Care Home Goal (LTG) Pt will be able to perform at least 10 bilateral squats while holding weight without increase in baseline pain in L knee in order to be able to perform job requirements and demonstrate improved activity tolerance LTG Duration 12 weeks Two Impairment functional core strength Care Home Goal (LTG) Pt will be able to hold modified or standard plank for at least 60 seconds without signs of instability in order to demonstrate improved trunk strength for job fitness requirements LTG Duration 12 weeks One Impairment function, lifting Impairment pain with picking up his child Short Term Goal (STG) Pt will be educated on functional core bracing and demonstrates good abdominal bracing during at least 10 squats in order to pickle sorter his child 02/02/24: demos difficulty with core bracing when moving from 1/2 kneel transfer or with squat to similate picking up child STG Duration 6 weeks NOT MET Care Home Goal (LTG) Pt will be able to pickle sorter his child from the ground without increase in low back pain in order to demonstrate improved QOL, core bracing, and ADL tolerance LTG Duration 12 weeks Progress Towards Goals Progress Towards Goals Slow Progress due to Attendance Issues Assessment Summary Assessment Pt tolerated session fair. He continues to have knee and back pain, reports improvement in back pain only with manual treatment and core bracing. Pt challenged with coordinating breath work and core bracing, demonstrating valsalva maneuver. He also demonstrates limitations in L hip rotation, especially into hip IR. Session emphasis on body mechanics, especially during work environment and when picking up toddler. Pt has less back and knee pain when using 1/2 kneel to floor or with core bracing during squat. Physical Therapy Plan Frequency and Duration Frequency of Treatment 1-2x/wk Duration of treatment (weeks) 12 Plan of Care Start Date 12/17/23 Plan of Care End Date 03/11/24 Therapeutic Interventions Therapeutic Interventions Balance Training,Coordination Training,Gait Training,Home Exercise Program,Joint Mobilizations,Manual Therapy, Neuromuscular Re-education, Orthotic/Prosthetic Management ,Patient/Caregiver Education, Self-Care/Home Management, Sensory Integration,Soft Tissue Mobilization,Taping, Therapeutic Activities, Therapeutic Exercises Modalities Cold Pack/Ice Massage,Electric Stimulation,Hot Packs, Ultrasound Other Referrals/Consults Referrals/Consults Recommended Pt would benefit from further imaging of lumbar spine and L knee to assess pain due to repetitive work requirements and recent increase in pain levels with minimal relief Next Visit Focus/Plan Next Note Type Treatment Note Next Visit Plan Breathwork and body mechanics: dying bug, hip hinge, goblet squat vs wall squat Initiated core bracing with hip hinge for squat and deadlift mechanics (limit squat depth due to knee); hip strength, wall squat with ball if tolerated. Side steps, trial LAQ. Emphasize core bracing and glute strengthening, LAQ Trial supine HS mobilization, sidelying hip abd and bridging (SL vs DL), initiate flexion biased core bracing and hip hinge, stretching limit squat depth for now
--- NOTE | 2024-02-05 13:00 | PT.OTN ---
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 He reports that his L knee aches a lot. It aches when he stands, sit, crosses legs, rest. He thinks he hurt it playing soccer a few years ago (2.5 years ago), but he also slipped [place] stairs [place] the ship. He planted his knee, it gave out, and he fell backward. He does not recall a pop; was limping but able to weight bear. Lasted several weeks until resolved closer to normal. Reports crepitus and clicking, worse with flexing. He has had previous PT for his knee with the [employer], they think that it's due to rubbing of the cartilage, which was unhelpful . He has had an x-ray, nothing broken. Pt believes it's inside the knee. He is wanting an MRI. Reports knee does not buckle or give out. No other hip or ankle injuries. Pt also has back pain. He reports that he was loading food into storage areas about 1 year ago : bent down and twisted while getting food; his back locked and he couldn't get up or sit. He reports that it has improved but still aches at all times. He reports that it hurts if he wears his tool belt or chain (20# belt, 6x12# )- over the shoulder, crouching, squatting. 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 Injured back last year. He has had no imaging on his back. Pt also reports that he used to lift heavy weights and has been at least 250 pounds for many years, which he believes influences his pain Prior Treatments and Tests previous PT for back pain with [employer]; reports feels better but still not better Treatment Goals Patient/Caregiver Goals more concerned about his knee. 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 PT-OP-E Functional Tests Start: 12/17/23 12:59 Freq: Status: Active Protocol: Document 12/18/23 13:00 NM (Rec: 12/18/23 13:55 NM [id number]) Functional Tests Other plank Name of Test full plank Score 28 seconds Comment signs of instability; reports pain in back (positional) PT-OP-F Manual Assessment Start: 12/17/23 12:59 Freq: Status: Active Protocol: Document 12/17/23 12:59 NM (Rec: 12/17/23 14:29 NM [id number]) Manual Assessments Soft Tissue Assessment Soft Tissue Mobility Assessment Increased tone along lumbar paraspinals, R>L. Increased hamstring length L>R Joint Mobility Assessment Joint Mobility Assessment Hypomobility with P-A springing of lumbar spine, tenderness along L1-L3. Limited B hip ROM. No L knee pain with overpressure into flex or ext, but increased L knee hyperextension compared to R knee. L patella tracks laterally. Limited L patellar mobility medially and superiorly, which also reproduces pain. PT-OP-G Mobility & Gait Start: 12/17/23 12:59 Freq: Status: Active Protocol: Document 12/17/23 12:59 NM (Rec: 12/17/23 14:29 NM [id number]) OP Gait Assessment Gait Deviations General Gait Pattern Antalgic Comments Gait Comments Pt demonstrates antalgic gait with L stance and slightly forward flexed trunk. Does not move into truncal extension and with minimal trunk rotation. L knee hyperextends with stance as well, and he has B foot ER PT-OP-J Posture/Palpation/Skin Start: 12/17/23 12:59 Freq: Status: Active Protocol: Document 12/17/23 12:59 NM (Rec: 12/17/23 14:29 NM [id number]) Posture Evaluation Position Standing Head/C-Spine Posture Forward Head L-Spine Posture Decreased Lordosis Shoulder Posture (L) Rounded,(R) Rounded Arm Posture (L) Internally Rotated,(R) Internally Rotated Weight Distribution Weight Shifted Right Hip Posture (L) Externally Rotated,(R) Externally Rotated Knee Posture (L) Genu Valgus,(R) Genu Valgus Patellar Posture (L) Superior,(R) Superior Palpation Assessment Location lumbar spine Palpation Details Tenderness just lateral to midline spinous processes along R side near L1-L3 No tenderness along B PSIS or SIJ Increased tightness of B glutes/piriformis, paraspinals bilaterally with L hypertrophy L knee Palpation Details No tenderness along joint line , patella, quad/hamstring Mild tenderness with patellar mobilization only, ligament testing PT-OP-K Range of Motion Start: 12/17/23 12:59 Freq: Status: Active Protocol: Document 02/02/24 11:20 NM (Rec: 02/02/24 12:06 NM [id number]) Lumbar Spine Range of Motion Lumbar Spine Active Percentage Flexion 100 Extension 25 Rotation Left 10 Rotation Right 5 Lateral Flexion Left 100 Lateral Flexion Right 100 Comments Pain reproduced with extension , B lateral flexion (R>L), and B rotation (R>L) 02/01/25: less lateral flex ROM 75% on L side PT-OP-L Special Tests Start: 12/17/23 12:59 Freq: Status: Active Protocol: Document 12/17/23 12:59 NM (Rec: 12/17/23 14:29 NM [id number]) Special Tests Lumbar Spine Special Tests Straight Leg Raise Test Results - Comments worse with head movement Distraction Test Results + Frias/quadrant Test Results + Comments R Knee Special Tests Varus Test Results - Comments 0 and 25 deg Valgus Test Results - Comments 0 and 25 deg Keith Test Test Results + Comments mild clicking with tibial IR, reproduces reported symptoms Posterior Drawer Test Results - Zelda's Test Results - Anterior Drawer Test Results - Comments no increased translation but reports reproduces feeling in knee PT-OP-M Strength Start: 12/17/23 12:59 Freq: Status: Active Protocol: Document 02/02/24 11:20 NM (Rec: 02/02/24 12:06 NM [id number]) Trunk Strength Trunk Manual Muscle Testing Flexion 4- Good- Extension 4- Good- Rotation Left 4- Good- Rotation Right 4- Good- Lateral Flexion Left 4- Good- Lateral Flexion Right 4- Good- Comments 02/02/24: no change since IE Hip Strength Hip Manual Muscle Testing Right Flexion (L2) 4 Good Extension (S1) 4- Good- Abduction 4- Good- Adduction 4 Good External Rotation 4 Good Internal Rotation 4 Good Comments 02/02/24: hip ext/abd Left Flexion (L2) 4 Good Extension (S1) 4- Good- Abduction 4- Good- Adduction 4 Good External Rotation 4 Good Internal Rotation 4 Good Comments 02/02/24: hip ext/abd Knee Strength Knee Manual Muscle Testing Right Flexion (S2) 4+ Good+ Extension (L3) 4+ Good+ Left Flexion (S2) 4+ Good+ Extension (L3) 4- Good- Comments Mild pain reproduced with knee extension 02/02/24: 4/5 for ext; mild pain PT-OP-Q Treatments Start: 12/17/23 12:59 Freq: Status: Active Protocol: Document 02/05/24 12:54 TS (Rec: 02/05/24 15:28 TS [id number]) Therapeutic Exercises Sitting Exercises togolese ball Sitting Exercise Name 1. ppt to neutral, 2. pelvic wags, clocks Equipment Used 65 cm ball Reps/Minutes 10 ea Comments upright trunk Standing Exercises SLD Side bilateral Reps/Minutes x10 ea Comments cued for straight back, reports pain in L knee coming into knee ext Other Exercises quadruped Other Exercise Name 1. child pose rock back, 2. hip IR rock back, 3. hip ER rock back Side bilateral Reps/Minutes 10 with 2 hold ea for all Comments Difficulty going into full child pose Therapeutic Activity Therapeutic Activity 1/2 kneel floor transfer Name similate picking up kid and for work Reps/Minutes 8 Comments from 1/2 kneel position cued core bracing and hip hinge, LLE behind to emphasis use of R quad for stance. Able to shredder picker small from floor without report of increased back pain when cued for core bracing hip hinge Comments 1. deadlift with hinge, 8 to shredder picker large ball 2. squat/hinge to shredder picker ball , 8 cued core bracing and breathwork to limit breathholding. Pt reports L knee pain with squatting Manual Therapy Treatment Soft Tissue Mobilization lumbar paraspinals Body Location glutes/piriformis, paraspinals , QL Mobilization Type Rolling,Strumming Intensity/Depth Moderate Body Position Sidelying Comments Tightness but no tenderness of paraspinals or QL, R>L. PT-OP-T Assessment and Plan Start: 12/17/23 12:59 Freq: Status: Active Protocol: Document 02/05/24 12:54 TS (Rec: 02/05/24 15:28 TS [id number]) Physical Therapy Assessment Goals Four Impairment strength Impairment limited B hip and knee strength Short Term Goal (STG) Pt will improve B hip ext/abd strength and L knee ext strength to at least 4/5 without increase in baseline pain in order to demonstrate improved proximal stability for ADLs/activity 02/02/24: 4/5 hip and knee strength, mild pain but denies increase in baseline pain STG Duration 6 weeks MET Senior Care Goal (LTG) Pt will improve B hip ext/abd strength and L knee ext strength to at least 4+/5 without increase in baseline pain in order to demonstrate improved proximal stability for ADLs/activity LTG Duration 12 weeks Three Impairment squatting Impairment pain with squatting Short Term Goal (STG) Pt will be able to perform at least 10 bilateral squats with pain <6/10 in L knee in order to be able to perform job requirements and demonstrate improved activity tolerance/ QOL 02/02/24: pt reports pain in L knee (does not provide number) with squatting STG Duration 6 weeks Senior Care Goal (LTG) Pt will be able to perform at least 10 bilateral squats while holding weight without increase in baseline pain in L knee in order to be able to perform job requirements and demonstrate improved activity tolerance LTG Duration 12 weeks Two Impairment functional core strength Branch Sales And Service Representative Goal (LTG) Pt will be able to hold modified or standard plank for at least 60 seconds without signs of instability in order to demonstrate improved trunk strength for job fitness requirements LTG Duration 12 weeks One Impairment function, lifting Impairment pain with picking up his child Short Term Goal (STG) Pt will be educated on functional core bracing and demonstrates good abdominal bracing during at least 10 squats in order to 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 Continued to emphasize good body mechanics with hip hinge and SLD picking object off floor. Continues to demonstrate stiffness in hips with pelvic tilts and clocks. Physical Therapy Plan Next Visit Focus/Plan Next Note Type Treatment Note Next Visit Plan Breathwork and body mechanics: dying bug, hip hinge, goblet squat vs wall squat Initiated core bracing with hip hinge for squat and deadlift mechanics (limit squat depth due to knee); hip strength, wall squat with ball if tolerated. Side steps, trial LAQ. Emphasize core bracing and glute strengthening, LAQ Trial supine HS mobilization, sidelying hip abd and bridging (SL vs DL), initiate flexion biased core bracing and hip hinge, stretching limit squat depth for now
--- NOTE | 2024-02-08 15:43 | PT.OTN ---
Current Diagnoses Pain in left knee (02/08/24) Low back pain, unspecified (02/08/24) Weakness (02/08/24) Physical Therapy Treatment Note PT-OP-A Visit Information Start: 12/17/23 12:59 Freq: Status: Active Protocol: Document 02/08/24 13:00 NM (Rec: 02/08/24 13:47 NM [id number]) Out-Patient Physical Therapy Visit Information Visit Information Visit Type Treatment Note Visit Note 12 visits initially Visit Start Time 13:01 Visit Stop Time 13:41 Visit Number 8 Evaluation Information Evaluation Date 12/17/23 PT-OP-B Current Condition Start: 12/17/23 12:59 Freq: Status: Active Protocol: Document 12/17/23 12:59 NM (Rec: 12/17/23 14:29 NM [id number]) Current Condition History of Current Condition Current Complaints pain, difficulty w/ ADLs/job, strength History of Current Condition Pt presents with knee and back pain. He reports that his L knee aches a lot. It aches when he stands, sit, crosses legs, rest. He thinks he hurt it playing soccer a few years ago (2.5 years ago), but he also slipped [place] stairs [place] the ship. He planted his knee, it gave out, and he fell backward. He does not recall a pop; was limping but able to weight bear. Lasted several weeks until resolved closer to normal. Reports crepitus and clicking, worse with flexing. He has had previous PT for his knee with the [employer], they think that it's due to rubbing of the cartilage, which was unhelpful . He has had an x-ray, nothing broken. Pt believes it's inside the knee. He is wanting an MRI. Reports knee does not buckle or give out. No other hip or ankle injuries. Pt also has back pain. He reports that he was loading food into storage areas about 1 year ago : bent down and twisted while getting food; his back locked and he couldn't get up or sit. He reports that it has improved but still aches at all times. He reports that it hurts if he wears his tool belt or chain (20# belt, 6x12# )- over the shoulder, crouching, squatting. Works as maintenance on jets, active duty. Injured back last year. He has had no imaging on his back. Pt also reports that he used to lift heavy weights and has been at least 250 pounds for many years, which he believes influences his pain Prior Treatments and Tests previous PT for back pain with [facility]; reports feels better but still not better Treatment Goals Patient/Caregiver Goals more concerned about his knee. 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 States had difficulty sleeping, both on back and side. He states pillow on side has helped. However, still having considerable pain. PT-OP-E Functional Tests Start: 12/17/23 12:59 Freq: Status: Active Protocol: Document 12/18/23 13:00 NM (Rec: 12/18/23 13:55 NM [id number]) Functional Tests Other plank Name of Test full plank Score 28 seconds Comment signs of instability; reports pain in back (positional) PT-OP-F Manual Assessment Start: 12/17/23 12:59 Freq: Status: Active Protocol: Document 12/17/23 12:59 NM (Rec: 12/17/23 14:29 NM [id number]) Manual Assessments Soft Tissue Assessment Soft Tissue Mobility Assessment Increased tone along lumbar paraspinals, R>L. Increased hamstring length L>R Joint Mobility Assessment Joint Mobility Assessment Hypomobility with P-A springing of lumbar spine, tenderness along L1-L3. Limited B hip ROM. No L knee pain with overpressure into flex or ext, but increased L knee hyperextension compared to R knee. L patella tracks laterally. Limited L patellar mobility medially and superiorly, which also reproduces pain. PT-OP-G Mobility & Gait Start: 12/17/23 12:59 Freq: Status: Active Protocol: Document 12/17/23 12:59 NM (Rec: 12/17/23 14:29 NM [id number]) OP Gait Assessment Gait Deviations General Gait Pattern Antalgic Comments Gait Comments Pt demonstrates antalgic gait with L stance and slightly forward flexed trunk. Does not move into truncal extension and with minimal trunk rotation. L knee hyperextends with stance as well, and he has B foot ER PT-OP-J Posture/Palpation/Skin Start: 12/17/23 12:59 Freq: Status: Active Protocol: Document 12/17/23 12:59 NM (Rec: 12/17/23 14:29 NM [id number]) Posture Evaluation Position Standing Head/C-Spine Posture Forward Head L-Spine Posture Decreased Lordosis Shoulder Posture (L) Rounded,(R) Rounded Arm Posture (L) Internally Rotated,(R) Internally Rotated Weight Distribution Weight Shifted Right Hip Posture (L) Externally Rotated,(R) Externally Rotated Knee Posture (L) Genu Valgus,(R) Genu Valgus Patellar Posture (L) Superior,(R) Superior Palpation Assessment Location lumbar spine Palpation Details Tenderness just lateral to midline spinous processes along R side near L1-L3 No tenderness along B PSIS or SIJ Increased tightness of B glutes/piriformis, paraspinals bilaterally with L hypertrophy L knee Palpation Details No tenderness along joint line , patella, quad/hamstring Mild tenderness with patellar mobilization only, ligament testing PT-OP-K Range of Motion Start: 12/17/23 12:59 Freq: Status: Active Protocol: Document 02/02/24 11:20 NM (Rec: 02/02/24 12:06 NM [id number]) Lumbar Spine Range of Motion Lumbar Spine Active Percentage Flexion 100 Extension 25 Rotation Left 10 Rotation Right 5 Lateral Flexion Left 100 Lateral Flexion Right 100 Comments Pain reproduced with extension , B lateral flexion (R>L), and B rotation (R>L) 02/01/25: less lateral flex ROM 75% on L side PT-OP-L Special Tests Start: 12/17/23 12:59 Freq: Status: Active Protocol: Document 12/17/23 12:59 NM (Rec: 12/17/23 14:29 NM [id number]) Special Tests Lumbar Spine Special Tests Straight Leg Raise Test Results - Comments worse with head movement Distraction Test Results + Frias/quadrant Test Results + Comments R Knee Special Tests Varus Test Results - Comments 0 and 25 deg Valgus Test Results - Comments 0 and 25 deg Keith Test Test Results + Comments mild clicking with tibial IR, reproduces reported symptoms Posterior Drawer Test Results - Zelda's Test Results - Anterior Drawer Test Results - Comments no increased translation but reports reproduces feeling in knee PT-OP-M Strength Start: 12/17/23 12:59 Freq: Status: Active Protocol: Document 02/02/24 11:20 NM (Rec: 02/02/24 12:06 NM [id number]) Trunk Strength Trunk Manual Muscle Testing Flexion 4- Good- Extension 4- Good- Rotation Left 4- Good- Rotation Right 4- Good- Lateral Flexion Left 4- Good- Lateral Flexion Right 4- Good- Comments 02/02/24: no change since IE Hip Strength Hip Manual Muscle Testing Right Flexion (L2) 4 Good Extension (S1) 4- Good- Abduction 4- Good- Adduction 4 Good External Rotation 4 Good Internal Rotation 4 Good Comments 02/02/24: hip ext/abd Left Flexion (L2) 4 Good Extension (S1) 4- Good- Abduction 4- Good- Adduction 4 Good External Rotation 4 Good Internal Rotation 4 Good Comments 02/02/24: hip ext/abd Knee Strength Knee Manual Muscle Testing Right Flexion (S2) 4+ Good+ Extension (L3) 4+ Good+ Left Flexion (S2) 4+ Good+ Extension (L3) 4- Good- Comments Mild pain reproduced with knee extension 02/02/24: 4/5 for ext; mild pain PT-OP-Q Treatments Start: 12/17/23 12:59 Freq: Status: Active Protocol: Document 02/08/24 13:00 NM (Rec: 02/08/24 13:47 NM [id number]) Therapeutic Exercises Supine Exercises distraction Side bilateral Equipment Used bolster Reps/Minutes 60 LTR Reps/Minutes x10 Comments cued to stay in pain free range, min AROM keegan stretch Side bilateral Reps/Minutes 60 Comments no knee or back pain; good feedback for stretch hamstring stretch/sciatic nerve mobilization Supine Exercise Name with knee flexion/extension for dynamic stretching Side bilateral Equipment Used with towel Reps/Minutes 60 ea Comments pain free; Sitting Exercises lithuanian ball Sitting Exercise Name 1. slump, 2. lateral flex w/ QL stretch, 3. pallof press, 4 . lat pull down Resistance level 4 blue band pallof, level 5 purple band lat pull down Equipment Used 65 cm ball Reps/Minutes 1. 10, 2. 5x10, 3. 60 ea, 4. 2x15 Comments pain free, cued breathwork and core stabilization Other Exercises counter stretch Other Exercise Name fwd with segmental extension Side bilateral Reps/Minutes 60 Manual Therapy Treatment Consent Patient gave verbal consent for manual Yes treatment Soft Tissue Mobilization lumbar paraspinals Body Location glutes/piriformis, paraspinals , QL Mobilization Type Rolling,Strumming Intensity/Depth Moderate Body Position Sidelying Comments Tightness of paraspinals or QL , R>L; performed with gentle lateral flexion for tissue elongation in L sidelying with R side up. Joint Mobilizations lumbar spine Joint L2-3, L4-5 Direction post Grade III Reps/Duration 2x30 Comments Less spinous process rotation today to R, demos good response to pressure and grade III lateral flexion L of L2- L3 spinous processes. Trialed grade II mobilizations of lumbar spine P-A, good tolerance for T12-L1 but not for lower lumbar spine so discontinued PT-OP-T Assessment and Plan Start: 12/17/23 12:59 Freq: Status: Active Protocol: Document 02/08/24 13:00 NM (Rec: 02/08/24 13:47 NM [id number]) Physical Therapy Assessment Goals Four Impairment strength Impairment limited B hip and knee strength Short Term Goal (STG) Pt will improve B hip ext/abd strength and L knee ext strength to at least 4/5 without increase in baseline pain in order to demonstrate improved proximal stability for ADLs/activity 02/02/24: 4/5 hip and knee strength, mild pain but denies increase in baseline pain STG Duration 6 weeks MET Assisted Goal (LTG) Pt will improve B hip ext/abd strength and L knee ext strength to at least 4+/5 without increase in baseline pain in order to demonstrate improved proximal stability for ADLs/activity LTG Duration 12 weeks Three Impairment squatting Impairment pain with squatting Short Term Goal (STG) Pt will be able to perform at least 10 bilateral squats with pain <6/10 in L knee in order to be able to perform job requirements and demonstrate improved activity tolerance/ QOL 02/02/24: pt reports pain in L knee (does not provide number) with squatting STG Duration 6 weeks Assisted Goal (LTG) Pt will be able to perform at least 10 bilateral squats while holding weight without increase in baseline pain in L knee in order to be able to perform job requirements and demonstrate improved activity tolerance LTG Duration 12 weeks Two Impairment functional core strength Assisted Goal (LTG) Pt will be able to hold modified or standard plank for at least 60 seconds without signs of instability in order to demonstrate improved trunk strength for job fitness requirements LTG Duration 12 weeks One Impairment function, lifting Impairment pain with picking up his child Short Term Goal (STG) Pt will be educated on functional core bracing and demonstrates good abdominal bracing during at least 10 squats in 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 He always has a dull ache in his low back. Pt did not respond well to P-A mobilization of lower lumbar spine. However, continues to have better response to soft tissue mobilization and lumbar lateral flexion mobilization due to muscle tightness of lumbar paraspinals, hip flexors, and QL. Pt has good tolerance for QL stretch and forward trunk flexion stretch. Cued moderately for segmental extension and core bracing for pain reduction when transitioning from trunk flexion, which pt reports is a significant reduction in pain . Pt would benefit from skilled PT for progressive trunk/core strengthening and flexibility, in addition to body mechanics training in order to improve symptom management for ADLs/picking up son and for work requirements . Physical Therapy Plan Frequency and Duration Frequency of Treatment 1-2x/wk Duration of treatment (weeks) 12 Plan of Care Start Date 12/17/23 Plan of Care End Date 03/11/24 Therapeutic Interventions Therapeutic Interventions Balance Training,Coordination Training,Gait Training,Home Exercise Program,Joint Mobilizations,Manual Therapy, Neuromuscular Re-education, Orthotic/Prosthetic Management ,Patient/Caregiver Education, Self-Care/Home Management, Sensory Integration,Soft Tissue Mobilization,Taping, Therapeutic Activities, Therapeutic Exercises Modalities Cold Pack/Ice Massage,Electric Stimulation,Hot Packs, Ultrasound Other Referrals/Consults Referrals/Consults Recommended Pt would benefit from further imaging of lumbar spine and L knee to assess pain due to repetitive work requirements and recent increase in pain levels with minimal relief Next Visit Focus/Plan Next Note Type Treatment Note Next Visit Plan QL stretch lateral hip hinge, review counter stretch, trial segmental flexion w/o resistance. Hip 3 way with band, pallof press in standing . Cue for core bracing Breathwork and body mechanics: dying bug, goblet squat vs wall squat c/ ball Emphasize core bracing and glute strengthening, LAQ, initiate flexion biased core bracing and hip hinge, stretching
--- NOTE | 2024-02-12 15:41 | PT.OTN ---
Current Diagnoses Pain in left knee (02/12/24) Low back pain, unspecified (02/12/24) Weakness (02/12/24) Physical Therapy Treatment Note PT-OP-A Visit Information Start: 12/17/23 12:59 Freq: Status: Active Protocol: Document 02/12/24 12:56 TS (Rec: 02/12/24 15:41 TS [id number]) Out-Patient Physical Therapy Visit Information Visit Information Visit Type Treatment Note Visit Note 12 visits initially Visit Start Time 13:00 Visit Stop Time 13:40 Visit Number 9 Number of INSTITUTION DIRECTOR Visits 1 PT-OP-B Current Condition Start: 12/17/23 12:59 Freq: Status: Active Protocol: Document 12/17/23 12:59 NM (Rec: 12/17/23 14:29 NM [id number]) Current Condition History of Current Condition Current Complaints pain, difficulty w/ ADLs/job, strength History of Current Condition Pt presents with knee and back pain. He reports that his L knee aches a lot. It aches when he stands, sit, crosses legs, rest. He thinks he hurt it playing soccer a few years ago (2.5 years ago), but he also [place] the [place]. He planted his knee, it gave out, and he fell backward. He does not recall a pop; was limping but able to weight bear. Lasted several weeks until resolved closer to normal. Reports crepitus and clicking, worse with flexing. He has had previous PT for his knee with the [employer], they think that it's due to rubbing of the cartilage, which was unhelpful . He has had an x-ray, nothing broken. Pt believes it's inside the knee. He is wanting an MRI. Reports knee does not buckle or give out. No other hip or ankle injuries. Pt also has back pain. He reports that he was loading food into storage areas about 1 year ago : bent down and twisted while getting food; his back locked and he couldn't get up or sit. He reports that it has improved but still aches at all times. He reports that it hurts if he wears his tool belt or chain (20# belt, 6x12# )- over the shoulder, crouching, squatting. 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 He has had no imaging on his back. Pt also reports that he used to lift heavy weights and has been at least 250 pounds for many years, which he believes influences his pain Prior Treatments and Tests previous PT for back pain with [employer]; reports feels better but still not better Treatment Goals Patient/Caregiver Goals more concerned about his knee. 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 Sleeping is getting a little better for him. PT-OP-E Functional Tests Start: 12/17/23 12:59 Freq: Status: Active Protocol: Document 12/18/23 13:00 NM (Rec: 12/18/23 13:55 NM [id number]) Functional Tests Other plank Name of Test full plank Score 28 seconds Comment signs of instability; reports pain in back (positional) PT-OP-F Manual Assessment Start: 12/17/23 12:59 Freq: Status: Active Protocol: Document 12/17/23 12:59 NM (Rec: 12/17/23 14:29 NM [id number]) Manual Assessments Soft Tissue Assessment Soft Tissue Mobility Assessment Increased tone along lumbar paraspinals, R>L. Increased hamstring length L>R Joint Mobility Assessment Joint Mobility Assessment Hypomobility with P-A springing of lumbar spine, tenderness along L1-L3. Limited B hip ROM. No L knee pain with overpressure into flex or ext, but increased L knee hyperextension compared to R knee. L patella tracks laterally. Limited L patellar mobility medially and superiorly, which also reproduces pain. PT-OP-G Mobility & Gait Start: 12/17/23 12:59 Freq: Status: Active Protocol: Document 12/17/23 12:59 NM (Rec: 12/17/23 14:29 NM [id number]) OP Gait Assessment Gait Deviations General Gait Pattern Antalgic Comments Gait Comments Pt demonstrates antalgic gait with L stance and slightly forward flexed trunk. Does not move into truncal extension and with minimal trunk rotation. L knee hyperextends with stance as well, and he has B foot ER PT-OP-J Posture/Palpation/Skin Start: 12/17/23 12:59 Freq: Status: Active Protocol: Document 12/17/23 12:59 NM (Rec: 12/17/23 14:29 NM [id number]) Posture Evaluation Position Standing Head/C-Spine Posture Forward Head L-Spine Posture Decreased Lordosis Shoulder Posture (L) Rounded,(R) Rounded Arm Posture (L) Internally Rotated,(R) Internally Rotated Weight Distribution Weight Shifted Right Hip Posture (L) Externally Rotated,(R) Externally Rotated Knee Posture (L) Genu Valgus,(R) Genu Valgus Patellar Posture (L) Superior,(R) Superior Palpation Assessment Location lumbar spine Palpation Details Tenderness just lateral to midline spinous processes along R side near L1-L3 No tenderness along B PSIS or SIJ Increased tightness of B glutes/piriformis, paraspinals bilaterally with L hypertrophy L knee Palpation Details No tenderness along joint line , patella, quad/hamstring Mild tenderness with patellar mobilization only, ligament testing PT-OP-K Range of Motion Start: 12/17/23 12:59 Freq: Status: Active Protocol: Document 02/02/24 11:20 NM (Rec: 02/02/24 12:06 NM [id number]) Lumbar Spine Range of Motion Lumbar Spine Active Percentage Flexion 100 Extension 25 Rotation Left 10 Rotation Right 5 Lateral Flexion Left 100 Lateral Flexion Right 100 Comments Pain reproduced with extension , B lateral flexion (R>L), and B rotation (R>L) 02/01/25: less lateral flex ROM 75% on L side PT-OP-L Special Tests Start: 12/17/23 12:59 Freq: Status: Active Protocol: Document 12/17/23 12:59 NM (Rec: 12/17/23 14:29 NM [id number]) Special Tests Lumbar Spine Special Tests Straight Leg Raise Test Results - Comments worse with head movement Distraction Test Results + Frias/quadrant Test Results + Comments R Knee Special Tests Varus Test Results - Comments 0 and 25 deg Valgus Test Results - Comments 0 and 25 deg Keith Test Test Results + Comments mild clicking with tibial IR, reproduces reported symptoms Posterior Drawer Test Results - Zelda's Test Results - Anterior Drawer Test Results - Comments no increased translation but reports reproduces feeling in knee PT-OP-M Strength Start: 12/17/23 12:59 Freq: Status: Active Protocol: Document 02/02/24 11:20 NM (Rec: 02/02/24 12:06 NM [id number]) Trunk Strength Trunk Manual Muscle Testing Flexion 4- Good- Extension 4- Good- Rotation Left 4- Good- Rotation Right 4- Good- Lateral Flexion Left 4- Good- Lateral Flexion Right 4- Good- Comments 02/02/24: no change since IE Hip Strength Hip Manual Muscle Testing Right Flexion (L2) 4 Good Extension (S1) 4- Good- Abduction 4- Good- Adduction 4 Good External Rotation 4 Good Internal Rotation 4 Good Comments 02/02/24: hip ext/abd Left Flexion (L2) 4 Good Extension (S1) 4- Good- Abduction 4- Good- Adduction 4 Good External Rotation 4 Good Internal Rotation 4 Good Comments 02/02/24: hip ext/abd Knee Strength Knee Manual Muscle Testing Right Flexion (S2) 4+ Good+ Extension (L3) 4+ Good+ Left Flexion (S2) 4+ Good+ Extension (L3) 4- Good- Comments Mild pain reproduced with knee extension 02/02/24: 4/5 for ext; mild pain PT-OP-Q Treatments Start: 12/17/23 12:59 Freq: Status: Active Protocol: Document 02/12/24 12:56 TS (Rec: 02/12/24 15:41 TS [id number]) Therapeutic Exercises Supine Exercises Piriformis Supine Exercise Name HEP Side bilateral Reps/Minutes 2x60 Comments feels good stretch Figure 4 Supine Exercise Name HEP Reps/Minutes 2x60 Comments Cues for breath LTR Reps/Minutes x10 Comments cued to stay in pain free range, min AROM keegan stretch Side bilateral Reps/Minutes 60 Comments no knee or back pain; good feedback for stretch Sitting Exercises [place] ball Sitting Exercise Name 1. lateral flex w/ QL stretch, 2. pallof press, 3. lat pull down Resistance level 4 blue band pallof Equipment Used 65 cm ball Comments pain free, cued breathwork and core stabilization Standing Exercises Wall Squat Reps/Minutes 1x1min Comments cues for breath Hip 3 way Standing Exercise Name Ext, flex, ADD Reps/Minutes 1x10 Manual Therapy Treatment Consent Patient gave verbal consent for manual Yes treatment Soft Tissue Mobilization lumbar paraspinals Body Location glutes/piriformis, paraspinals , QL Mobilization Type Rolling,Strumming Intensity/Depth Moderate Body Position Sidelying Comments Tightness of paraspinals or QL , R>L; performed with gentle lateral flexion for tissue elongation in L sidelying with R side up. Joint Mobilizations lumbar spine Joint L2-3, L4-5 Direction post Grade III Reps/Duration 2x30 Comments Less spinous process rotation today to R, demos good response to pressure and grade III lateral flexion L of L2- L3 spinous processes. Trialed grade II mobilizations of lumbar spine P-A, good tolerance for T12-L1 but not for lower lumbar spine so discontinued PT-OP-T Assessment and Plan Start: 12/17/23 12:59 Freq: Status: Active Protocol: Document 02/12/24 12:56 TS (Rec: 02/12/24 15:41 TS [id number]) Physical Therapy Assessment Goals Four Impairment strength Impairment limited B hip and knee strength Short Term Goal (STG) Pt will improve B hip ext/abd strength and L knee ext strength to at least 4/5 without increase in baseline pain in order to demonstrate improved proximal stability for ADLs/activity 02/02/24: 4/5 hip and knee strength, mild pain but denies increase in baseline pain STG Duration 6 weeks MET Harbor Engineer Goal (LTG) Pt will improve B hip ext/abd strength and L knee ext strength to at least 4+/5 without increase in baseline pain in order to demonstrate improved proximal stability for ADLs/activity LTG Duration 12 weeks Three Impairment squatting Impairment pain with squatting Short Term Goal (STG) Pt will be able to perform at least 10 bilateral squats with pain <6/10 in L knee in order to be able to perform job requirements and demonstrate improved activity tolerance/ QOL 02/02/24: pt reports pain in L knee (does not provide number) with squatting STG Duration 6 weeks Half-Way Goal (LTG) Pt will be able to perform at least 10 bilateral squats while holding weight without increase in baseline pain in L knee in order to be able to perform job requirements and demonstrate improved activity tolerance LTG Duration 12 weeks Two Impairment functional core strength Harbor Engineer Goal (LTG) Pt will be able to hold modified or standard plank for at least 60 seconds without signs of instability in order to demonstrate improved trunk strength for job fitness requirements LTG Duration 12 weeks One Impairment function, lifting Impairment pain with picking up his child Short Term Goal (STG) Pt will be educated on functional core bracing and demonstrates good abdominal bracing during at least 10 squats in order to 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 He tolerated south su[place]ese ball ex and 3 way hip with no increase in back pain. He reports some relief in back with manual therapy. He continues to require cues for breaths during session. Physical Therapy Plan Next Visit Focus/Plan Next Note Type Treatment Note Next Visit Plan Review 3 way hip ex and wall squat. Continue manual therapy and joint mobs for lumbar spine.
--- NOTE | 2024-02-19 15:32 | PT.OTN ---
Current Diagnoses Pain in left knee (02/19/24) Low back pain, unspecified (02/19/24) Weakness (02/19/24) Physical Therapy Treatment Note PT-OP-A Visit Information Start: 12/17/23 12:59 Freq: Status: Active Protocol: Document 02/19/24 12:59 TS (Rec: 02/19/24 15:31 TS [id number]) Out-Patient Physical Therapy Visit Information Visit Information Visit Type Treatment Note Visit Note 12 visits initially Visit Start Time 13:00 Visit Stop Time 13:41 Visit Number 10 Number of SURFACE SUPPLY BREATHING APPARATUS Visits 2 PT-OP-B Current Condition Start: 12/17/23 12:59 Freq: Status: Active Protocol: Document 12/17/23 12:59 NM (Rec: 12/17/23 14:29 NM [id number]) Current Condition History of Current Condition Current Complaints pain, difficulty w/ ADLs/job, strength History of Current Condition Pt presents with knee and back pain. He reports that his L knee aches a lot. It aches when he stands, sit, crosses legs, rest. He thinks he hurt it playing soccer a few years ago (2.5 years ago), but he also [place]. He planted his knee, it gave out, and he fell backward. He does not recall a pop; was limping but able to weight bear. Lasted several weeks until resolved closer to normal. Reports crepitus and clicking, worse with flexing. He has had previous PT for his knee with the [employer], they think that it's due to rubbing of the cartilage, which was unhelpful . He has had an x-ray, nothing broken. Pt believes it's inside the knee. He is wanting an MRI. Reports knee does not buckle or give out. No other hip or ankle injuries. Pt also has back pain. He reports that he was loading food into storage areas about 1 year ago : bent down and twisted while getting food; his back locked and he couldn't get up or sit. He reports that it has improved but still aches at all times. He reports that it hurts if he wears his tool belt or chain (20# belt, 6x12# )- over the shoulder, crouching, squatting. 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 He has had no imaging on his back. Pt also reports that he used to lift heavy weights and has been at least 250 pounds for many years, which he believes influences his pain Prior Treatments and Tests previous PT for back pain with [employer]; reports feels better but still not better Treatment Goals Patient/Caregiver Goals more concerned about his knee. 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 Stretches and manual therapy provide some relief. PT-OP-E Functional Tests Start: 12/17/23 12:59 Freq: Status: Active Protocol: Document 12/18/23 13:00 NM (Rec: 12/18/23 13:55 NM [id number]) Functional Tests Other plank Name of Test full plank Score 28 seconds Comment signs of instability; reports pain in back (positional) PT-OP-F Manual Assessment Start: 12/17/23 12:59 Freq: Status: Active Protocol: Document 12/17/23 12:59 NM (Rec: 12/17/23 14:29 NM [id number]) Manual Assessments Soft Tissue Assessment Soft Tissue Mobility Assessment Increased tone along lumbar paraspinals, R>L. Increased hamstring length L>R Joint Mobility Assessment Joint Mobility Assessment Hypomobility with P-A springing of lumbar spine, tenderness along L1-L3. Limited B hip ROM. No L knee pain with overpressure into flex or ext, but increased L knee hyperextension compared to R knee. L patella tracks laterally. Limited L patellar mobility medially and superiorly, which also reproduces pain. PT-OP-G Mobility & Gait Start: 12/17/23 12:59 Freq: Status: Active Protocol: Document 12/17/23 12:59 NM (Rec: 12/17/23 14:29 NM [id number]) OP Gait Assessment Gait Deviations General Gait Pattern Antalgic Comments Gait Comments Pt demonstrates antalgic gait with L stance and slightly forward flexed trunk. Does not move into truncal extension and with minimal trunk rotation. L knee hyperextends with stance as well, and he has B foot ER PT-OP-J Posture/Palpation/Skin Start: 12/17/23 12:59 Freq: Status: Active Protocol: Document 12/17/23 12:59 NM (Rec: 12/17/23 14:29 NM [id number]) Posture Evaluation Position Standing Head/C-Spine Posture Forward Head L-Spine Posture Decreased Lordosis Shoulder Posture (L) Rounded,(R) Rounded Arm Posture (L) Internally Rotated,(R) Internally Rotated Weight Distribution Weight Shifted Right Hip Posture (L) Externally Rotated,(R) Externally Rotated Knee Posture (L) Genu Valgus,(R) Genu Valgus Patellar Posture (L) Superior,(R) Superior Palpation Assessment Location lumbar spine Palpation Details Tenderness just lateral to midline spinous processes along R side near L1-L3 No tenderness along B PSIS or SIJ Increased tightness of B glutes/piriformis, paraspinals bilaterally with L hypertrophy L knee Palpation Details No tenderness along joint line , patella, quad/hamstring Mild tenderness with patellar mobilization only, ligament testing PT-OP-K Range of Motion Start: 12/17/23 12:59 Freq: Status: Active Protocol: Document 02/02/24 11:20 NM (Rec: 02/02/24 12:06 NM [id number]) Lumbar Spine Range of Motion Lumbar Spine Active Percentage Flexion 100 Extension 25 Rotation Left 10 Rotation Right 5 Lateral Flexion Left 100 Lateral Flexion Right 100 Comments Pain reproduced with extension , B lateral flexion (R>L), and B rotation (R>L) 02/01/25: less lateral flex ROM 75% on L side PT-OP-L Special Tests Start: 12/17/23 12:59 Freq: Status: Active Protocol: Document 12/17/23 12:59 NM (Rec: 12/17/23 14:29 NM [id number]) Special Tests Lumbar Spine Special Tests Straight Leg Raise Test Results - Comments worse with head movement Distraction Test Results + Frias/quadrant Test Results + Comments R Knee Special Tests Varus Test Results - Comments 0 and 25 deg Valgus Test Results - Comments 0 and 25 deg Keith Test Test Results + Comments mild clicking with tibial IR, reproduces reported symptoms Posterior Drawer Test Results - Zelda's Test Results - Anterior Drawer Test Results - Comments no increased translation but reports reproduces feeling in knee PT-OP-M Strength Start: 12/17/23 12:59 Freq: Status: Active Protocol: Document 02/02/24 11:20 NM (Rec: 02/02/24 12:06 NM [id number]) Trunk Strength Trunk Manual Muscle Testing Flexion 4- Good- Extension 4- Good- Rotation Left 4- Good- Rotation Right 4- Good- Lateral Flexion Left 4- Good- Lateral Flexion Right 4- Good- Comments 02/02/24: no change since IE Hip Strength Hip Manual Muscle Testing Right Flexion (L2) 4 Good Extension (S1) 4- Good- Abduction 4- Good- Adduction 4 Good External Rotation 4 Good Internal Rotation 4 Good Comments 02/02/24: hip ext/abd Left Flexion (L2) 4 Good Extension (S1) 4- Good- Abduction 4- Good- Adduction 4 Good External Rotation 4 Good Internal Rotation 4 Good Comments 02/02/24: hip ext/abd Knee Strength Knee Manual Muscle Testing Right Flexion (S2) 4+ Good+ Extension (L3) 4+ Good+ Left Flexion (S2) 4+ Good+ Extension (L3) 4- Good- Comments Mild pain reproduced with knee extension 02/02/24: 4/5 for ext; mild pain PT-OP-Q Treatments Start: 12/17/23 12:59 Freq: Status: Active Protocol: Document 02/19/24 12:59 TS (Rec: 02/19/24 15:31 TS [id number]) Therapeutic Exercises Supine Exercises Piriformis Supine Exercise Name HEP Side bilateral Reps/Minutes 1x60 Comments feels good stretch LTR Reps/Minutes x10 Comments cued to stay in pain free range, min AROM keegan stretch Side bilateral Reps/Minutes 60 Comments no knee or back pain; good feedback for stretch Sitting Exercises beninese ball Sitting Exercise Name 1. lateral flex w/ QL stretch, 2. pallof press, 3. lat pull down, 4.crunch Resistance level 4 blue band pallof, pulldown lvl 5 Equipment Used 65 cm ball Comments pain free, cued breathwork and core stabilization Other Exercises counter stretch Other Exercise Name fwd with segmental extension Side bilateral Reps/Minutes 60 Comments Pt reports stretch feels good on his back Therapeutic Activity Therapeutic Activity hip hinge Reps/Minutes 4 Comments 1. deadlift with hinge, 8 to pick up driver large ball 2. squat/hinge to pick up driver crate with 20LBS cued core bracing and breathwork to limit breathholding. Pt reports L knee pain with squatting. Manual Therapy Treatment Soft Tissue Mobilization lumbar paraspinals Body Location glutes/piriformis, paraspinals , QL Mobilization Type Rolling,Strumming Intensity/Depth Moderate Body Position Sidelying Comments Tightness of paraspinals or QL , R>L; performed with gentle lateral flexion for tissue elongation in L sidelying with R side up. Pt reports feels some relief in back pain with manual therapy. PT-OP-T Assessment and Plan Start: 12/17/23 12:59 Freq: Status: Active Protocol: Document 02/19/24 12:59 TS (Rec: 02/19/24 15:31 TS [id number]) Physical Therapy Assessment Goals Four Impairment strength Impairment limited B hip and knee strength Short Term Goal (STG) Pt will improve B hip ext/abd strength and L knee ext strength to at least 4/5 without increase in baseline pain in order to demonstrate improved proximal stability for ADLs/activity 02/02/24: 4/5 hip and knee strength, mild pain but denies increase in baseline pain STG Duration 6 weeks MET Chemical Production Technician Goal (LTG) Pt will improve B hip ext/abd strength and L knee ext strength to at least 4+/5 without increase in baseline pain in order to demonstrate improved proximal stability for ADLs/activity LTG Duration 12 weeks Three Impairment squatting Impairment pain with squatting Short Term Goal (STG) Pt will be able to perform at least 10 bilateral squats with pain <6/10 in L knee in order to be able to perform job requirements and demonstrate improved activity tolerance/ QOL 02/02/24: pt reports pain in L knee (does not provide number) with squatting STG Duration 6 weeks Snf Goal (LTG) Pt will be able to perform at least 10 bilateral squats while holding weight without increase in baseline pain in L knee in order to be able to perform job requirements and demonstrate improved activity tolerance LTG Duration 12 weeks Two Impairment functional core strength Snf Goal (LTG) Pt will be able to hold modified or standard plank for at least 60 seconds without signs of instability in order to demonstrate improved trunk strength for job fitness requirements LTG Duration 12 weeks One Impairment function, lifting Impairment pain with picking up his child Short Term Goal (STG) Pt will be educated on functional core bracing and demonstrates good abdominal bracing during at least 10 squats in order to pick up driver his child 02/02/24: wesly difficulty with core bracing when moving from 1/2 kneel transfer or with squat to similate picking up child STG Duration 6 weeks NOT MET Snf Goal (LTG) Pt will be able to pick up driver his child from the ground without increase in low back pain in order to demonstrate improved QOL, core bracing, and ADL tolerance LTG Duration 12 weeks Assessment Summary Assessment Pt continues to reports pain in back and knee at end of session. He does report that manual and stretching does improve his back pain. Focused on core and hip hinge with squats. He requires cues for increased hip hinge and core bracing when picking up crate with 20LBS simulating work activity. Physical Therapy Plan Next Visit Focus/Plan Next Note Type Progress Note Next Visit Plan Assess pt's goals and possible d/c.
--- NOTE | 2024-02-23 15:40 | PT.OTN ---
Current Diagnoses Pain in left knee (02/23/24) Low back pain, unspecified (02/23/24) Weakness (02/23/24) Physical Therapy Treatment Note PT-OP-A Visit Information Start: 12/17/23 12:59 Freq: Status: Active Protocol: Document 02/23/24 13:00 NM (Rec: 02/23/24 13:47 NM [id number]) Out-Patient Physical Therapy Visit Information Visit Information Visit Type Discharge Summary Visit Note 12 visits initially Visit Start Time 13:02 Visit Stop Time 13:42 Visit Number 11 Evaluation Information Evaluation Date 12/17/23 PT-OP-B Current Condition Start: 12/17/23 12:59 Freq: Status: Active Protocol: Document 12/17/23 12:59 NM (Rec: 12/17/23 14:29 NM [id number]) Current Condition History of Current Condition Current Complaints pain, difficulty w/ ADLs/job, strength History of Current Condition Pt presents with knee and back pain. He reports that his L knee aches a lot. It aches when he stands, sit, crosses legs, rest. He thinks he hurt it playing soccer a few years ago (2.5 years ago), but he also slipped [place] stairs [place] the ship. He planted his knee, it gave out, and he fell backward. He does not recall a pop; was limping but able to weight bear. Lasted several weeks until resolved closer to normal. Reports crepitus and clicking, worse with flexing. He has had previous PT for his knee with the [employer], they think that it's due to rubbing of the cartilage, which was unhelpful . He has had an x-ray, nothing broken. Pt believes it's inside the knee. He is wanting an MRI. Reports knee does not buckle or give out. No other hip or ankle injuries. Pt also has back pain. He reports that he was loading food into storage areas about 1 year ago : bent down and twisted while getting food; his back locked and he couldn't get up or sit. He reports that it has improved but still aches at all times. He reports that it hurts if he wears his tool belt or chain (20# belt, 6x12# )- over the shoulder, crouching, squatting. Works as maintenance on jets, active duty. Injured back last year. He has had no imaging on his back. Pt also reports that he used to lift heavy weights and has been at least 250 pounds for many years, which he believes influences his pain Prior Treatments and Tests previous PT for back pain with [facility]; reports feels better but still not better Treatment Goals Patient/Caregiver Goals more concerned about his knee. 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 States that his low back continues to hurt, bothers him more than his knee . He is wanting to d/c today. Cannot get further auth because needs to see PCP in person and can't get appt. Pt also wanting further workup due to pain. PT-OP-E Functional Tests Start: 12/17/23 12:59 Freq: Status: Active Protocol: Document 12/18/23 13:00 NM (Rec: 12/18/23 13:55 NM [id number]) Functional Tests Other plank Name of Test full plank Score 28 seconds Comment signs of instability; reports pain in back (positional) PT-OP-F Manual Assessment Start: 12/17/23 12:59 Freq: Status: Active Protocol: Document 12/17/23 12:59 NM (Rec: 12/17/23 14:29 NM [id number]) Manual Assessments Soft Tissue Assessment Soft Tissue Mobility Assessment Increased tone along lumbar paraspinals, R>L. Increased hamstring length L>R Joint Mobility Assessment Joint Mobility Assessment Hypomobility with P-A springing of lumbar spine, tenderness along L1-L3. Limited B hip ROM. No L knee pain with overpressure into flex or ext, but increased L knee hyperextension compared to R knee. L patella tracks laterally. Limited L patellar mobility medially and superiorly, which also reproduces pain. PT-OP-G Mobility & Gait Start: 12/17/23 12:59 Freq: Status: Active Protocol: Document 12/17/23 12:59 NM (Rec: 12/17/23 14:29 NM [id number]) OP Gait Assessment Gait Deviations General Gait Pattern Antalgic Comments Gait Comments Pt demonstrates antalgic gait with L stance and slightly forward flexed trunk. Does not move into truncal extension and with minimal trunk rotation. L knee hyperextends with stance as well, and he has B foot ER PT-OP-J Posture/Palpation/Skin Start: 12/17/23 12:59 Freq: Status: Active Protocol: Document 12/17/23 12:59 NM (Rec: 12/17/23 14:29 NM [id number]) Posture Evaluation Position Standing Head/C-Spine Posture Forward Head L-Spine Posture Decreased Lordosis Shoulder Posture (L) Rounded,(R) Rounded Arm Posture (L) Internally Rotated,(R) Internally Rotated Weight Distribution Weight Shifted Right Hip Posture (L) Externally Rotated,(R) Externally Rotated Knee Posture (L) Genu Valgus,(R) Genu Valgus Patellar Posture (L) Superior,(R) Superior Palpation Assessment Location lumbar spine Palpation Details Tenderness just lateral to midline spinous processes along R side near L1-L3 No tenderness along B PSIS or SIJ Increased tightness of B glutes/piriformis, paraspinals bilaterally with L hypertrophy L knee Palpation Details No tenderness along joint line , patella, quad/hamstring Mild tenderness with patellar mobilization only, ligament testing PT-OP-K Range of Motion Start: 12/17/23 12:59 Freq: Status: Active Protocol: Document 02/23/24 13:00 NM (Rec: 02/23/24 13:47 NM [id number]) Lumbar Spine Range of Motion Lumbar Spine Active Percentage Flexion 100 Extension 25 Rotation Left 10 Rotation Right 5 Lateral Flexion Left 100 Lateral Flexion Right 100 Comments Pain reproduced with extension , B lateral flexion (R>L), and B rotation (R>L) 02/23/24, 02/01/25: less lateral flex ROM 75% on L side PT-OP-L Special Tests Start: 12/17/23 12:59 Freq: Status: Active Protocol: Document 12/17/23 12:59 NM (Rec: 12/17/23 14:29 NM [id number]) Special Tests Lumbar Spine Special Tests Straight Leg Raise Test Results - Comments worse with head movement Distraction Test Results + Frias/quadrant Test Results + Comments R Knee Special Tests Varus Test Results - Comments 0 and 25 deg Valgus Test Results - Comments 0 and 25 deg Keith Test Test Results + Comments mild clicking with tibial IR, reproduces reported symptoms Posterior Drawer Test Results - Zelda's Test Results - Anterior Drawer Test Results - Comments no increased translation but reports reproduces feeling in knee PT-OP-M Strength Start: 12/17/23 12:59 Freq: Status: Active Protocol: Document 02/23/24 13:00 NM (Rec: 02/23/24 13:47 NM [id number]) Trunk Strength Trunk Manual Muscle Testing Flexion 4 Good Extension 4 Good Rotation Left 4 Good Rotation Right 4 Good Lateral Flexion Left 4 Good Lateral Flexion Right 4 Good Comments 02/02/24: no change since IE 02/23/24: 4/5; no pain w/ resisted motions Hip Strength Hip Manual Muscle Testing Right Flexion (L2) 4 Good Extension (S1) 4 Good Abduction 4 Good Adduction 4 Good External Rotation 4 Good Internal Rotation 4 Good Comments 02/02/24: hip ext/abd 02/23/24: 4/5 for all Left Flexion (L2) 4 Good Extension (S1) 4 Good Abduction 4 Good Adduction 4 Good External Rotation 4 Good Internal Rotation 4 Good Comments 02/02/24: hip ext/abd 02/23/24: 4/5 for all PT-OP-Q Treatments Start: 12/17/23 12:59 Freq: Status: Active Protocol: Document 02/23/24 13:00 NM (Rec: 02/23/24 13:47 NM [id number]) Therapeutic Exercises Prone Exercises plank Prone Exercise Name full plank Side bilateral Reps/Minutes 60 Comments no signs of instability, reports inc back pain; cued breathwork Standing Exercises squat Standing Exercise Name goblet squat Side bilateral Resistance 30# Reps/Minutes 10 Comments meet goal and simulate lifting kid; reports inc back pain; cued breathwork hip flexor stretch Standing Exercise Name 1. figure 4 stretch (modified pigeon-table),2. hip flexor stretch seated Side bilateral Reps/Minutes 60 ea leg, ea stretch Comments pain free Other Exercises counter stretch Other Exercise Name fwd with segmental extension: HEP Side bilateral Reps/Minutes 60 Comments Pt reports stretch feels good on his back Manual Therapy Treatment Consent Patient gave verbal consent for manual Yes treatment Soft Tissue Mobilization lumbar paraspinals Body Location B - glutes/piriformis, paraspinals, QL, Mobilization Type Rolling,Strumming Intensity/Depth Moderate Body Position Sidelying Comments Performed bilaterally. Lateral flexion mobilization with lateral facet gapping in sidelying followed by depression of iliac crest 3x30 . Followed by moderate lat, paraspinals, QL soft tissue with rolling sup/inf and medial-lateral. Monitored for pain Hamstrings/Quads Body Location iliopsoas Mobilization Type Rolling,Other Intensity/Depth Moderate Body Position Sidelying Comments Release with gentle distraction and rolling, monitored for pain Joint Mobilizations lumbar spine Joint L1-L5 Direction flexion Grade II Body Position Sidelying Reps/Duration 10 ea Comments PT blocking at distal segment then mobilizing at superior tranverse process into flexion to improve flexion mobilization. Followed by posterior pelvic tilt mobilization. Monitored for pain. Performed bilaterally. Biased into flexion in sidelying PT-OP-T Assessment and Plan Start: 12/17/23 12:59 Freq: Status: Active Protocol: Document 02/23/24 13:00 NM (Rec: 02/23/24 13:47 NM [id number]) Physical Therapy Assessment Goals Four Impairment strength Impairment limited B hip and knee strength Short Term Goal (STG) Pt will improve B hip ext/abd strength and L knee ext strength to at least 4/5 without increase in baseline pain in order to demonstrate improved proximal stability for ADLs/activity 02/02/24: 4/5 hip and knee strength, mild pain but denies increase in baseline pain STG Duration 6 weeks MET Synthetic Plasterer Goal (LTG) Pt will improve B hip ext/abd strength and L knee ext strength to at least 4+/5 without increase in baseline pain in order to demonstrate improved proximal stability for ADLs/activity 02/23/24: 4/5 for all, pain free LTG Duration 12 weeks NOT MET Three Impairment squatting Impairment pain with squatting Short Term Goal (STG) Pt will be able to perform at least 10 bilateral squats with pain <6/10 in L knee in order to be able to perform job requirements and demonstrate improved activity tolerance/ QOL 02/02/24: pt reports pain in L knee (does not provide number) with squatting STG Duration 6 weeks Residential Goal (LTG) Pt will be able to perform at least 10 bilateral squats while holding weight without increase in baseline pain in L knee in order to be able to perform job requirements and demonstrate improved activity tolerance 02/23/24: 30# for 10 reps to mimic work requirements but reports increase in back pain; no increase in knee pain LTG Duration 12 weeks PARTIALLY MET Two Impairment functional core strength Residential Goal (LTG) Pt will be able to hold modified or standard plank for at least 60 seconds without signs of instability in order to demonstrate improved trunk strength for job fitness requirements 02/23/24: 60 full plank; reports increase in back pain LTG Duration 12 weeks MET One Impairment function, lifting Impairment pain with picking up his child Short Term Goal (STG) Pt will be educated on functional core bracing and demonstrates good abdominal bracing during at least 10 squats in 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 02/02/24: demos difficulty with core bracing when moving from 1/2 kneel transfer or with squat to similate picking up child STG Duration 6 weeks NOT MET Synthetic Plasterer Goal (LTG) Pt will be able to 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 Emphasis on improving mobility of lumbar vertebrae into flexion, in addition to elongation and pain reduction related to increased tension of soft tissue. Pt demonstrates increased restrictions of lumbar paraspinals and hip flexors. Reduced pain, muscle tension with soft tissue mobilization. Continued with stretching to improve hip flexor and glute tissue length. Good feedback to modified stretches; added to HEP. Pt continues to have back pain with squatting and planks; demos improved awareness of breathwork vs breath-holding but requires cues for good body mechanics and core activation. Requesting to discharge today due to lack of auth and also for further assessment. PT in agreement Physical Therapy Plan Frequency and Duration Frequency of Treatment 1-2x/wk Duration of treatment (weeks) 12 Plan of Care Start Date 12/17/23 Plan of Care End Date 03/11/24 Therapeutic Interventions Therapeutic Interventions Balance Training,Coordination Training,Gait Training,Home Exercise Program,Joint Mobilizations,Manual Therapy, Neuromuscular Re-education, Orthotic/Prosthetic Management ,Patient/Caregiver Education, Self-Care/Home Management, Sensory Integration,Soft Tissue Mobilization,Taping, Therapeutic Activities, Therapeutic Exercises Modalities Cold Pack/Ice Massage,Electric Stimulation,Hot Packs, Ultrasound Other Referrals/Consults Referrals/Consults Recommended Pt would benefit from further imaging of lumbar spine and L knee, in addition to referral to student development specialist, to assess pain due to repetitive work requirements and recent increase in pain levels with minimal relief Discharge Physical Therapy Discharge Reasons Patient Request Discharge Comments Pt is requesting discharge today due to lack of further authorization and due to desire for further assessment of pain symptoms Next Visit Focus/Plan Next Visit Plan discharge from PT
== END 2024-03-04 09:51 | disposition home or self-care (01) ==
LOC: PHYS 13:00
PROVIDERS: Family Provider Podiatrist; PCP Podiatrist
DX: M25.562 Pain in left knee (principal); M54.50 Low back pain, unspecified; R53.1 Weakness
CPT/HCPCS: 97110; 97140; 97161; 97530